=== PATIENT | male | born 1940 | race Caucasian/White ===

== ENCOUNTER 2016-11-14 22:14 | Inpatient (IN) | payer MEDICARE, OTHER ==
[2016-11-15] MEDS: SODIUM CHLORIDE 0.9% 1,000 ML IV SCH ×2 (01:00→22:12)
[2016-11-15 01:53] LABS: Glucose,Whole Blood 199 mg/dL (75-99)
[2016-11-15] MEDS ORDERED: ALPRAZolam 0.25 MG TAB PO PRN (02:54)
[2016-11-15] MEDS ORDERED: ONDANSETRON 4 MG/2 ML VIAL IVP PRN (02:54)
[2016-11-15] MEDS ORDERED: IPRATROPIUM-ALBUTEROL 3 ML NEB INHALATION PRN ×2 (02:55→12:06)
[2016-11-15 06:14] LABS: Glucose,Whole Blood 176 mg/dL (75-99)
[2016-11-15 06:25] LABS: Anisocytosis Slight; Basophils % (A) 0 %; CH 27.9; CHCM 30.5; Eosinophils # (A) 0.1 k/uL (0-0.7); Eosinophils % (A) 1 %; HCT 24.1 % (39.0-53.0); HDW 2.93; HGB 7.5 gm/dL (13.0-17.5); Hypochromasia Moderate; Luc # (Auto) 0.18; Luc % (Auto) 1; Lymphocytes # (A) 0.6 k/uL (1.0-4.8); Lymphocytes % (A) 4 %; MCH 28.4 pg (25.0-35.0); MCHC 30.9 g/dL (31.0-37.0); MCV 91.9 fL (80.0-100.0); Mean Platelet Volume 8.6; Monocytes # (A) 0.5 k/uL (0-1.0); Monocytes % (A) 3 %; Neutrophils # (A) 15.8 k/uL (1.3-7.7); Neutrophils % (A) 91 %; RBC 2.62 m/uL (4.30-5.90); RDW 16.7 % (11.5-15.5); WBC 17.3 k/uL (3.8-10.6); WBC (Perox) 18.43
[2016-11-15 06:46] LABS: Anion Gap 9 mmol/L; Blood Urea Nitrogen 26 mg/dL (9-20); Carbon Dioxide 25 mmol/L (22-30); Chloride 109 mmol/L (98-107); Glucose 164 mg/dL (74-99); Non-African American GFR(MDRD) >60 (>60 ml/min/1.73 sqM); Potassium 4.5 mmol/L (3.5-5.1); Sodium 143 mmol/L (137-145)
[2016-11-15] MEDS: INSULIN LISPRO (humaLOG) 300 UNIT/3 ML VIAL SQ SCH ×4 (08:18→21:07)
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
[2016-11-15] MEDS: PIPERACILLIN-TAZOBACTAM 3.375 GM in DEXTROSE/WATER 1 50ML.BAG IVPB SCH ×2 (11:45→18:56)
[2016-11-15 11:51] LABS: Glucose,Whole Blood 201 mg/dL (75-99)
--- NOTE | 2016-11-15 11:58 | XR ---
EXAMINATION TYPE: XR chest 1V portable DATE OF EXAM ORDERED: 11/15/2016 11:52 AM HISTORY: Cough and fever. COMPARISON: Previous study dated 07/05/2015. FINDINGS: The heart is enlarged. There is atelectatic change at the right lung base. There is chroni c nodularity at the left lung base. There is vascular congestion. I cannot exclude some mild edema. T here is a right-sided pleural effusion. IMPRESSION: 1. CARDIOMEGALY. 2. CHRONIC NODULARITY, LEFT LUNG BASE. 3. CHANGES CONSISTENT WITH MILD HEART FAILURE. 4. RIGHT BASILAR ATELECTASIS. 5. RIGHT-SIDED EFFUSION.
[2016-11-15 12:26] LABS: Hemoglobin A1C 6.8 % (4.2-6.1)
[2016-11-15] MEDS: IPRATROPIUM-ALBUTEROL 3 ML NEB INHALATION SCH ×3 (13:36→20:52)
[2016-11-15] MEDS ORDERED: BISACODYL 10 MG SUPP RECTAL PRN (16:36)
[2016-11-15] MEDS ORDERED: MAGNESIUM HYDROXIDE 2,400 MG/10 ML CUP PEG/G-TUBE PRN (16:36)
[2016-11-15 17:01] LABS: Glucose,Whole Blood 152 mg/dL (75-99)
[2016-11-15] MEDS: POTASSIUM CHLORIDE ORAL LIQUID 40 MEQ/30 ML CUP PEG/G-TUBE SCH ×2 (17:19→22:12)
[2016-11-15] MEDS: metFORMIN 500 MG TAB PEG/G-TUBE SCH (17:19)
[2016-11-15] MEDS ORDERED: ACETAMINOPHEN IV (For NPO) 1,000 MG in EMPTY BAG 1 BAG IVPB ONE (17:43)
--- NOTE | 2016-11-15 18:15 | XR ---
EXAMINATION TYPE: XR chest 1V DATE OF EXAM: 11/15/2016 5:54 PM COMPARISON today HISTORY: Short of breath TECHNIQUE: Single frontal view of the chest is obtained. FINDINGS: There is only vascular congestion. Heart is probably enlarged. There is some consolidation at the right cardiac border and also in the right lower lobe. Thoracic aorta is atheromatous. IMPRESSION: There is mild congestive heart failure. There is increasing pneumonic consolidation in t he right lower lobe compared to the exam at 11:30 AM. Heart failure is unchanged. Mild right pleural effusion is unchanged.
[2016-11-15 18:43] LABS: Anisocytosis Slight; Basophils % (A) 0 %; CH 27.8; CHCM 30.6; Eosinophils # (A) 0.1 k/uL (0-0.7); Eosinophils % (A) 1 %; HCT 27.5 % (39.0-53.0); HGB 8.9 gm/dL (13.0-17.5); Hypochromasia Moderate; Luc # (Auto) 0.16; Luc % (Auto) 1; Lymphocytes # (A) 0.3 k/uL (1.0-4.8); Lymphocytes % (A) 2 %; MCH 29.4 pg (25.0-35.0); MCHC 32.3 g/dL (31.0-37.0); MCV 91.1 fL (80.0-100.0); Mean Platelet Volume 7.7; Monocytes # (A) 0.5 k/uL (0-1.0); Monocytes % (A) 3 %; Neutrophils # (A) 17.3 k/uL (1.3-7.7); Neutrophils % (A) 94 %; RBC 3.02 m/uL (4.30-5.90); RDW 19.6 % (11.5-15.5); WBC 18.3 k/uL (3.8-10.6); WBC (Perox) 19.05
[2016-11-15 18:52] LABS: Anion Gap 13 mmol/L; Blood Urea Nitrogen 25 mg/dL (9-20); Calcium 8.9 mg/dL (8.4-10.2); Carbon Dioxide 20 mmol/L (22-30); Chloride 108 mmol/L (98-107); Glucose 201 mg/dL (74-99); Non-African American GFR(MDRD) >60 (>60 ml/min/1.73 sqM); Sodium 141 mmol/L (137-145); Total Bilirubin 0.9 mg/dL (0.2-1.3)
[2016-11-15 18:53] LABS: Potassium 4.6 mmol/L (3.5-5.1)
[2016-11-15 20:43] LABS: Glucose,Whole Blood 246 mg/dL (75-99)
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
[2016-11-15] MEDS ORDERED: IV VANCOMYCIN PER PHARMACY 1 EACH MISC MISCELLANE PRN (21:09)
[2016-11-15] MEDS: TAMSULOSIN 0.4 MG CAP.ER.24H PO SCH (21:29)
[2016-11-15] MEDS: OLANZapine 5 MG TAB PEG/G-TUBE SCH (22:12)
[2016-11-15] MEDS: VANCOMYCIN 1,250 MG in SODIUM CHLORIDE 0.9% 250 ML IVPB SCH (23:12)
[2016-11-16] MEDS: PIPERACILLIN-TAZOBACTAM 3.375 GM in DEXTROSE/WATER 1 50ML.BAG IVPB SCH ×4 (00:45→23:32)
[2016-11-16] MEDS: CLOPIDOGREL 75 MG TAB PEG/G-TUBE SCH (04:40)
[2016-11-16] MEDS: DOXAZOSIN 1 MG TAB PO SCH (04:40)
[2016-11-16] MEDS: ATORVASTATIN 40 MG TAB PEG/G-TUBE SCH (04:40)
[2016-11-16] MEDS: ESCITALOPRAM 10 MG TAB PEG/G-TUBE SCH (04:40)
[2016-11-16] MEDS: FERROUS SULFATE 325 MG TAB PO SCH (04:41)
[2016-11-16] MEDS: FOLIC ACID 1 MG TAB PEG/G-TUBE SCH (04:41)
[2016-11-16] MEDS: OXYBUTYNIN XL 5 MG TAB.ER.24 PO SCH (04:42)
[2016-11-16] MEDS: LEVOTHYROXINE 100 MCG TAB PEG/G-TUBE SCH (04:42)
[2016-11-16 07:24] LABS: Glucose,Whole Blood 198 mg/dL (75-99)
[2016-11-16] MEDS: IPRATROPIUM-ALBUTEROL 3 ML NEB INHALATION SCH ×4 (07:46→20:28)
--- NOTE | 2016-11-16 07:53 | XR ---
EXAMINATION TYPE: XR chest 1V portable DATE OF EXAM: 11/16/2016 7:14 AM HISTORY: RLL infiltrate. REFERENCE: Previous study dated 11/15/2016. FINDINGS: The heart is enlarged. There is worsening right basilar airspace disease. There is scarring or atelectasis at the left lung base. There is vascular congestion without laura edema. IMPRESSION: 1. CARDIOMEGALY. 2. WORSENING RIGHT BASILAR AIRSPACE DISEASE. 3. SCARRING VERSUS ATELECTASIS, LEFT LUNG BASE.
[2016-11-16] MEDS: INSULIN LISPRO (humaLOG) 300 UNIT/3 ML VIAL SQ SCH ×3 (08:47→18:38)
[2016-11-16] MEDS: POTASSIUM CHLORIDE ORAL LIQUID 40 MEQ/30 ML CUP PEG/G-TUBE SCH ×4 (08:48→22:36)
[2016-11-16] MEDS: metFORMIN 500 MG TAB PEG/G-TUBE SCH ×2 (08:49→18:38)
[2016-11-16] MEDS: VANCOMYCIN 1,250 MG in SODIUM CHLORIDE 0.9% 250 ML IVPB SCH ×2 (08:53→21:06)
--- NOTE | 2016-11-16 10:20 | CONS ---
DATE OF CONSULTATION: 11/15/2016 REASON FOR CONSULTATION: Pneumonia. HISTORY OF PRESENT ILLNESS: The patient is a 76-year-old male who is currently a resident of [facility]. The patient was sent in to the [facility] with a fever 104 degrees Fahrenheit where the patient was found to have an elevated white count. The patient was tachycardic and had elevated lactic acid, diagnosed with sepsis secondary to the possible right lower lobe aspiration pneumonia. The patient did receive Zosyn, and Clindamycin at their facility. Subsequently has been transferred to the [facility] for further work-up of the same. I was asked to see the patient for further recommendation regarding his antibiotic therapy. At the time of my evaluation, the patient overall feels better and has improved. The patient remains to be nonverbal and hence could not provide any history. Most of the history has been obtained from chart review and talking to the nursing staff. The patient did have PEG tube feeding. No problem with the same. No nausea or vomiting has been noticed by the nursing staff or any diarrhea. REVIEW OF SYSTEMS: Could not be reliably obtained. Past medical history significant for hypertension, hyperlipidemia, diabetes mellitus, or pneumonia, CVA, TIA, COPD, seizure disorder, hypothyroidism, pulmonary sarcoidosis and skin cancer. Previous history of MRSA PEG tube site infection. PAST SURGICAL HISTORY: Significant for appendectomy, cholecystectomy, tonsillectomy. Adenoidectomy, craniotomy with brain tumor removal and biopsy and PEG tube placement. SOCIAL HISTORY: The patient is currently a prison resident. Did have history of smoking while he was in high school. No drinking or drug use. FAMILY HISTORY: Mother with history of colon cancer. ALLERGIES CIPROFLOXACIN AND SULFAMETHOXAZOLE. Medications currently include the patient is on: 1. Tylenol. 2. DuoNeb. 3. Xanax. 4. Lipitor. 5. Dulcolax. 6. Plavix. 7. Cardura. 8. Lexapro. 9. Iron sulfate. 10. Folic acid. 11. Humalog. 12. Synthroid. 13. Glucophage. 14. Zyprexa. 15. Zofran. 16. Piptazobactam. 17. Flomax. On examination: Blood pressure is 152/63 with a pulse of 119, temperature 10.4, he is 98% on 4 liters nasal cannula. General description is an elderly male, lying in bed in no distress. No tachypnea or accessory muscle of respiration use. HEENT examination shows pallor. There is no scleral icterus. Oral mucous membrane is dry. NECK: Trachea central. There is no thyromegaly. LUNGS: Unlabored breathing. Some coarse breath sounds at the bases bilaterally. HEART: S1, S2 regular rate and rhythm. ABDOMEN: Soft. No tenderness. EXTREMITIES: No edema of feet. SKIN EXAMINATION: No rash or mass palpable. NEUROLOGICAL: The patient is awake, orientation cannot be determined because he is nonverbal. LABS: Hemoglobin 8.9, white count of 18.3 with a BUN of 25, creatinine 0.73. Sputum culture ordered, not collected. DIAGNOSTIC IMPRESSION AND PLAN: Patient with sepsis in a patient who did have fever of 104 degrees Fahrenheit. patient did have elevated white count, tachycardia and elevated lactic acid meeting criteria for severe sepsis source more likely right lower lobe pneumonia in a patient who is a prison resident, we will need to cover for the resistant Gram-positive as well as gram-negative pathogen especially with previous history of Methicillin-resistant Staph aureus infection. PLAN: 1. Blood cultures x2 to obtain stat. 2. Will obtain Influenza A and B PCR. 3. Will add vancomycin, pharmacy to dose with a target trough of 15, because of fever and despite being on Zosyn. 4. Will try to obtain sputum with gram stain culture and sensitivity. 5. Will follow up on the clinical condition and cultures to further adjust the medication if needed. Thank you for this consultation. We will follow this patient along with you. LUTHER
[2016-11-16 12:21] LABS: Glucose,Whole Blood 179 mg/dL (75-99)
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
[2016-11-16 17:19] LABS: Glucose,Whole Blood 192 mg/dL (75-99)
[2016-11-16] MEDS: NYSTATIN 100,000 UNIT/ML SUSP 500,000 UNIT/5 ML CUP PO SCH ×2 (18:38→22:36)
[2016-11-16] MEDS: SODIUM CHLORIDE 0.9% 1,000 ML IV SCH (20:31)
[2016-11-16] MEDS: TAMSULOSIN 0.4 MG CAP.ER.24H PO SCH (20:31)
[2016-11-16] MEDS: OLANZapine 5 MG TAB PEG/G-TUBE SCH (22:36)
[2016-11-16] MEDS: ACETAMINOPHEN TAB 325 MG TAB PO PRN (22:46)
[2016-11-16 23:50] LABS: Anion Gap 10 mmol/L; Blood Urea Nitrogen 27 mg/dL (9-20); Calcium 9.3 mg/dL (8.4-10.2); Carbon Dioxide 20 mmol/L (22-30); Chloride 117 mmol/L (98-107); Glucose 181 mg/dL (74-99); Non-African American GFR(MDRD) >60 (>60 ml/min/1.73 sqM); Potassium 5.6 mmol/L (3.5-5.1); Sodium 147 mmol/L (137-145)
[2016-11-17 00:30] LABS: Glucose,Whole Blood 169 mg/dL (75-99)
[2016-11-17] MEDS ORDERED: ACETAMINOPHEN IV (For NPO) 1,000 MG in EMPTY BAG 1 BAG IVPB PRN (01:07)
[2016-11-17] MEDS ORDERED: SODIUM CHLORIDE 0.9% 500 ML IV ONE (01:15)
[2016-11-17] MEDS: INSULIN LISPRO (humaLOG) 300 UNIT/3 ML VIAL SQ SCH ×4 (01:42→16:59)
[2016-11-17] MEDS: ATORVASTATIN 40 MG TAB PEG/G-TUBE SCH (04:31)
[2016-11-17] MEDS: ESCITALOPRAM 10 MG TAB PEG/G-TUBE SCH (04:31)
[2016-11-17] MEDS: FERROUS SULFATE 325 MG TAB PO SCH (04:31)
[2016-11-17] MEDS: CLOPIDOGREL 75 MG TAB PEG/G-TUBE SCH (04:31)
[2016-11-17] MEDS: DOXAZOSIN 1 MG TAB PO SCH (04:32)
[2016-11-17] MEDS: LEVOTHYROXINE 100 MCG TAB PEG/G-TUBE SCH (04:32)
[2016-11-17] MEDS: FOLIC ACID 1 MG TAB PEG/G-TUBE SCH (04:32)
[2016-11-17] MEDS: OXYBUTYNIN XL 5 MG TAB.ER.24 PO SCH (04:32)
[2016-11-17 06:13] LABS: Glucose,Whole Blood 215 mg/dL (75-99)
[2016-11-17] MEDS: VANCOMYCIN 1,250 MG in SODIUM CHLORIDE 0.9% 250 ML IVPB SCH ×2 (07:49→21:03)
[2016-11-17] MEDS: IPRATROPIUM-ALBUTEROL 3 ML NEB INHALATION SCH ×4 (07:54→19:56)
[2016-11-17] MEDS ORDERED: VANCOMYCIN TROUGH DUE 1 EACH MISC MISCELLANE ONE (08:00)
--- NOTE | 2016-11-17 08:22 | XR ---
EXAMINATION TYPE: XR chest 2V DATE OF EXAM: 11/17/2016 7:38 AM COMPARISON: 11/16/2016 HISTORY: Pneumonia TECHNIQUE: Frontal and lateral views of the chest are obtained. FINDINGS: Heart is enlarged. There is blunting of right costophrenic angle and pleural thickening on the right lateral chest wall. There is patchy infiltrate in the right lower lobe. There is pulmonary vascular congestion. IMPRESSION: Mild congestive heart failure that is similar to last exam. There is right pleural effus ion that is probably partly loculated and appears slightly increased since yesterday. Persistent righ t lower lobe pneumonia.
[2016-11-17 08:43] LABS: Anisocytosis Slight; Basophils % (A) 0 %; CH 27.6; CHCM 29.9; Eosinophils # (A) 0.1 k/uL (0-0.7); Eosinophils % (A) 0 %; HCT 23.3 % (39.0-53.0); HDW 3.01; Hypochromasia Marked; Luc # (Auto) 0.18; Luc % (Auto) 1; Lymphocytes # (A) 0.6 k/uL (1.0-4.8); Lymphocytes % (A) 3 %; MCH 29.1 pg (25.0-35.0); MCHC 31.5 g/dL (31.0-37.0); MCV 92.6 fL (80.0-100.0); Mean Platelet Volume 7.2; Monocytes # (A) 0.6 k/uL (0-1.0); Monocytes % (A) 3 %; Neutrophils # (A) 19.4 k/uL (1.3-7.7); Neutrophils % (A) 93 %; RBC 2.51 m/uL (4.30-5.90); RDW 19.7 % (11.5-15.5); WBC 20.8 k/uL (3.8-10.6); WBC (Perox) 21.79
[2016-11-17] MEDS: NYSTATIN 100,000 UNIT/ML SUSP 500,000 UNIT/5 ML CUP PO SCH ×4 (08:48→21:56)
[2016-11-17 08:49] LABS: HGB 7.3 gm/dL (13.0-17.5)
[2016-11-17] MEDS: metFORMIN 500 MG TAB PEG/G-TUBE SCH ×2 (08:49→17:00)
[2016-11-17] MEDS: POTASSIUM CHLORIDE ORAL LIQUID 40 MEQ/30 ML CUP PEG/G-TUBE SCH ×4 (08:49→21:56)
[2016-11-17 09:03] LABS: ALT 31 U/L (21-72); AST 21 U/L (17-59); Alkaline Phosphatase 66 U/L (38-126); Anion Gap 11 mmol/L; Blood Urea Nitrogen 24 mg/dL (9-20); Calcium 8.8 mg/dL (8.4-10.2); Carbon Dioxide 21 mmol/L (22-30); Chloride 113 mmol/L (98-107); Glucose 180 mg/dL (74-99); Non-African American GFR(MDRD) >60 (>60 ml/min/1.73 sqM); Potassium 4.4 mmol/L (3.5-5.1); Sodium 145 mmol/L (137-145); Total Bilirubin 0.3 mg/dL (0.2-1.3)
[2016-11-17] MEDS: PIPERACILLIN-TAZOBACTAM 3.375 GM in DEXTROSE/WATER 1 50ML.BAG IVPB SCH ×2 (10:36→16:59)
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
--- NOTE | 2016-11-17 12:15 | PN ---
DATE OF SERVICE: 11/16/2016 Reason for follow up is fever and pneumonia. INTERVAL HISTORY: The patient did spike a fever last night. The patient is afebrile since then. He did have influenza PCR that was negative. Patient seems to be lying comfortably in bed in no distress. No nausea or vomiting has been noticed or any diarrhea. On examination, blood pressure is 104/64 with a pulse of 78. Temperature is 97.2. She is 98% on room air. General description is an elderly male lying in bed in no distress. RESPIRATORY SYSTEM: Unlabored breathing. Some coarse breath sounds at the base. HEART: S1, S2. Regular rate and rhythm. ABDOMEN: Soft, no tenderness. LABS: No CBC was done today. DIAGNOSTIC IMPRESSION AND PLAN: Patient with fever and likely from pneumonia with a question of possible with Gram-negative resistant or Gram-positive. Patient failed response to vanco as well as zosyn. We will try to obtain a sputum to narrow down his antibiotics. Continue supportive care. LUTHER
[2016-11-17 12:25] LABS: Glucose,Whole Blood 226 mg/dL (75-99)
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
[2016-11-17 16:59] LABS: Glucose,Whole Blood 145 mg/dL (75-99)
[2016-11-17] MEDS: SODIUM CHLORIDE 0.9% 1,000 ML IV SCH (17:00)
[2016-11-17] MEDS: ACETAMINOPHEN TAB 325 MG TAB PO PRN ×2 (17:06→22:22)
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
[2016-11-17] MEDS: TAMSULOSIN 0.4 MG CAP.ER.24H PO SCH (21:56)
[2016-11-18 00:11] LABS: Glucose,Whole Blood 191 mg/dL (75-99)
[2016-11-18] MEDS: OLANZapine 5 MG TAB PEG/G-TUBE SCH ×2 (00:32→23:24)
[2016-11-18] MEDS: INSULIN LISPRO (humaLOG) 300 UNIT/3 ML VIAL SQ SCH ×5 (00:34→23:34)
[2016-11-18] MEDS: PIPERACILLIN-TAZOBACTAM 3.375 GM in DEXTROSE/WATER 1 50ML.BAG IVPB SCH ×3 (03:42→15:55)
[2016-11-18] MEDS: ACETAMINOPHEN TAB 325 MG TAB PO PRN ×3 (04:39→23:24)
[2016-11-18 05:37] LABS: Glucose,Whole Blood 227 mg/dL (75-99)
[2016-11-18] MEDS: ATORVASTATIN 40 MG TAB PEG/G-TUBE SCH (05:53)
[2016-11-18] MEDS: DOXAZOSIN 1 MG TAB PO SCH (05:54)
[2016-11-18] MEDS: FERROUS SULFATE 325 MG TAB PO SCH (05:54)
[2016-11-18] MEDS: LEVOTHYROXINE 100 MCG TAB PEG/G-TUBE SCH (05:54)
[2016-11-18] MEDS: OXYBUTYNIN XL 5 MG TAB.ER.24 PO SCH (05:54)
[2016-11-18] MEDS: CLOPIDOGREL 75 MG TAB PEG/G-TUBE SCH (05:54)
[2016-11-18] MEDS: FOLIC ACID 1 MG TAB PEG/G-TUBE SCH (05:54)
[2016-11-18] MEDS: ESCITALOPRAM 10 MG TAB PEG/G-TUBE SCH (05:54)
[2016-11-18] MEDS: IPRATROPIUM-ALBUTEROL 3 ML NEB INHALATION SCH ×4 (07:43→20:59)
[2016-11-18] MEDS: metFORMIN 500 MG TAB PEG/G-TUBE SCH ×2 (07:54→17:50)
[2016-11-18] MEDS ORDERED: VANCOMYCIN TROUGH DUE 1 EACH MISC MISCELLANE ONE (08:00)
[2016-11-18] MEDS: POTASSIUM CHLORIDE ORAL LIQUID 40 MEQ/30 ML CUP PEG/G-TUBE SCH ×4 (09:10→21:31)
[2016-11-18] MEDS: NYSTATIN 100,000 UNIT/ML SUSP 500,000 UNIT/5 ML CUP PO SCH ×4 (09:11→21:32)
[2016-11-18 09:21] LABS: Anisocytosis Slight; Basophils % (A) 0 %; CH 27.4; Eosinophils # (A) 0.2 k/uL (0-0.7); Eosinophils % (A) 2 %; HCT 26.1 % (39.0-53.0); HDW 3.88; HGB 8.3 gm/dL (13.0-17.5); Hypochromasia Marked; Luc # (Auto) 0.14; Luc % (Auto) 1; Lymphocytes # (A) 0.6 k/uL (1.0-4.8); Lymphocytes % (A) 4 %; MCH 28.2 pg (25.0-35.0); MCHC 31.6 g/dL (31.0-37.0); MCV 89.1 fL (80.0-100.0); Mean Platelet Volume 7.5; Monocytes # (A) 0.4 k/uL (0-1.0); Monocytes % (A) 3 %; Neutrophils # (A) 13.5 k/uL (1.3-7.7); Neutrophils % (A) 90 %; Poikilocytosis Slight; RBC 2.93 m/uL (4.30-5.90); RDW 16.2 % (11.5-15.5); WBC 14.9 k/uL (3.8-10.6)
[2016-11-18] MEDS: VANCOMYCIN 1,250 MG in SODIUM CHLORIDE 0.9% 250 ML IVPB SCH ×2 (09:21→23:23)
[2016-11-18 09:28] LABS: Anion Gap 8 mmol/L; Blood Urea Nitrogen 23 mg/dL (9-20); Calcium 8.9 mg/dL (8.4-10.2); Carbon Dioxide 23 mmol/L (22-30); Chloride 110 mmol/L (98-107); Glucose 202 mg/dL (74-99); Non-African American GFR(MDRD) >60 (>60 ml/min/1.73 sqM); Potassium 4.5 mmol/L (3.5-5.1); Sodium 141 mmol/L (137-145)
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
[2016-11-18] MEDS: SODIUM CHLORIDE 0.9% 1,000 ML IV SCH (11:25)
[2016-11-18 11:57] LABS: Glucose,Whole Blood 249 mg/dL (75-99)
--- NOTE | 2016-11-18 13:00 | ECHOF ---
Referral Reason:chf MEASUREMENTS -------- HEIGHT: 172.7 cm WEIGHT: 70.8 kg BP: 111/56 RVIDd: 2.6 cm (< 3.3) IVSd: 1.1 cm (0.6 - 1.1) LVIDd: 4.9 cm (3.9 - 5.3) LVPWd: 1.1 cm (0.6 - 1.1) IVSs: 1.6 cm LVIDs: 3.0 cm LVPWs: 1.5 cm LA Diam: 3.9 cm (2.7 - 3.8) LAESV Index (A-L): 27.07 ml/m Ao Diam: 3.5 cm (2.0 - 3.7) AV Cusp: 2.2 cm (1.5 - 2.6) MV EXCURSION: 13.189 mm (> 18.000) MV EF SLOPE: 112 mm/s (70 - 150) EPSS: 0.5 cm MV E Valente: 1.12 m/s MV DecT: 231 ms MV A Valente: 1.15 m/s MV E/A Ratio: 0.98 FINDINGS -------- Sinus rhythm. This was a technically good study. The left ventricular size is normal. There is borderline concentric left ventricular hypertrophy. Overall left ventricular systolic function is normal with, an EF between 55 - 60 %. The right ventricle is normal in size and function. Normal LA size by volume 22+/-6 ml/m2. The right atrium is normal in size. There is mild aortic valve sclerosis. There is mild aortic regurgitation. Mild mitral annular calcification present. There is trace to mild mitral regurgitation. The tricuspid valve appears structurally normal. The pulmonic valve was not well visualized. The aortic root size is normal. There is no pericardial effusion. CONCLUSIONS -------- 1. Sinus rhythm. 2. The pulmonic valve was not well visualized. 3. The aortic root size is normal. 4. There is no pericardial effusion. 5. This was a technically good study. 6. There is borderline concentric left ventricular hypertrophy. 7. Overall left ventricular systolic function is normal with, an EF between 55 - 60 %. 8. Normal LA size by volume 22+/-6 ml/m2. 9. There is mild aortic valve sclerosis. 10. There is mild aortic regurgitation. 11. Mild mitral annular calcification present. 12. The tricuspid valve appears structurally normal. FUNERAL LOCATION MANAGER: Bonnie Morin RDCS
[2016-11-18] MEDS ORDERED: FUROSEMIDE 10 MG/ML 2 ML VIAL IV ONE (13:09)
[2016-11-18 13:32] VITALS: BMI 23.8
--- NOTE | 2016-11-18 13:39 | XR ---
EXAMINATION TYPE: XR chest 1V portable DATE OF EXAM: 11/18/2016 1:26 PM COMPARISON: Prior chest x-ray 17 November 2016 HISTORY: Shortness of breath TECHNIQUE: Single frontal view of the chest is obtained. FINDINGS: Findings are similar. There is blunting of the right costophrenic angle. Heart may be bord delisa enlarged. Lung lines are low. Interstitium and central vascularity are prominent. No pneumotho rax. IMPRESSION: Correlate for possible congestive heart failure. Findings are similar to prior exam. Add itional follow-up suggested. Pneumonia not excluded.
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
[2016-11-18] MEDS: NYSTATIN 100,000 UNIT/GM POWD 15 GM TOPICAL SCH ×2 (15:56→21:32)
--- NOTE | 2016-11-18 17:17 | PN ---
DATE OF SERVICE: 11/18/2016 Reason for follow-up: Pneumonia and PEG infection. INTERVAL HISTORY: The patient did have a low-grade fever last night of 100.6. He is afebrile since then. He seems to be more awake, alert. He is breathing comfortably. No nausea, vomiting has been noticed or any diarrhea. On examination, blood pressure 111/56 with a pulse of 77, temperature 98. He is 92% on 2 liters nasal cannula. General description is an elderly male, lying in bed in no distress. RESPIRATORY SYSTEM: Unlabored breathing. Clear to auscultation anteriorly. HEART: S1, S2 regular rate and rhythm. Abdomen soft, no tenderness. peg site with minimal redness. EXTREMITIES: No edema of the feet. LABS: Hemoglobin 8.1, white count 14.9, BUN of 23 with a creatinine 0.71. Vanco trough was elevated though. The abdominal wall culture showing yeast species. DIAGNOSTIC IMPRESSION AND PLAN: 1. Patient admitted to the hospital with pneumonia with a question of possible aspiration gram negative currently covered with Vanco and Zosyn that will be continued. 2. Patient with some drainage from percutaneous endoscopic gastrostomy feeding tube site, we will apply nystatin powder to that area and evaluate the patient tomorrow. Continue supportive care. MTDD
[2016-11-18 18:04] LABS: Glucose,Whole Blood 254 mg/dL (75-99)
[2016-11-18] MEDS: TAMSULOSIN 0.4 MG CAP.ER.24H PO SCH (21:32)
[2016-11-18 23:39] LABS: Glucose,Whole Blood 199 mg/dL (75-99)
[2016-11-19] MEDS: PIPERACILLIN-TAZOBACTAM 3.375 GM in DEXTROSE/WATER 1 50ML.BAG IVPB SCH ×4 (01:40→23:25)
[2016-11-19] MEDS: ATORVASTATIN 40 MG TAB PEG/G-TUBE SCH (05:42)
[2016-11-19] MEDS: LEVOTHYROXINE 100 MCG TAB PEG/G-TUBE SCH (05:42)
[2016-11-19] MEDS: OXYBUTYNIN XL 5 MG TAB.ER.24 PO SCH (05:42)
[2016-11-19] MEDS: FOLIC ACID 1 MG TAB PEG/G-TUBE SCH (05:42)
[2016-11-19] MEDS: DOXAZOSIN 1 MG TAB PO SCH (05:42)
[2016-11-19] MEDS: CLOPIDOGREL 75 MG TAB PEG/G-TUBE SCH (05:42)
[2016-11-19] MEDS: ESCITALOPRAM 10 MG TAB PEG/G-TUBE SCH (05:42)
[2016-11-19] MEDS: FERROUS SULFATE 325 MG TAB PO SCH (05:42)
[2016-11-19] MEDS: INSULIN LISPRO (humaLOG) 300 UNIT/3 ML VIAL SQ SCH ×4 (05:44→23:53)
[2016-11-19 05:45] LABS: Glucose,Whole Blood 161 mg/dL (75-99)
--- NOTE | 2016-11-19 07:30 | PN ---
DATE OF SERVICE: 11/18/2016 This 76-year-old gentleman who was admitted with acute right lower lobe pneumonia with possible aspiration and sepsis is being closely monitored at this time. The patient still has elevated lactic acid. Seen and evaluated the patient along with the nurse practitioner. Please refer to the nurse practitioner notes and impression documented for further information. Patient closely followed by Pulmonary as well as Infectious Disease. Further recommendations to follow.
[2016-11-19] MEDS: IPRATROPIUM-ALBUTEROL 3 ML NEB INHALATION SCH ×4 (08:07→20:27)
[2016-11-19] MEDS: metFORMIN 500 MG TAB PEG/G-TUBE SCH ×2 (09:12→17:35)
[2016-11-19] MEDS: ACETAMINOPHEN TAB 325 MG TAB PO PRN (09:12)
[2016-11-19] MEDS: POTASSIUM CHLORIDE ORAL LIQUID 40 MEQ/30 ML CUP PEG/G-TUBE SCH ×4 (09:12→22:04)
[2016-11-19] MEDS: NYSTATIN 100,000 UNIT/ML SUSP 500,000 UNIT/5 ML CUP PO SCH ×4 (09:13→22:04)
[2016-11-19] MEDS: SODIUM CHLORIDE 0.9% 1,000 ML IV SCH (09:13)
[2016-11-19] MEDS: NYSTATIN 100,000 UNIT/GM POWD 15 GM TOPICAL SCH ×3 (09:14→22:04)
[2016-11-19 09:45] LABS: Anisocytosis Moderate; Basophils % (A) 0 %; CH 28.7; CHCM 31.5; Eosinophils # (A) 0.3 k/uL (0-0.7); Eosinophils % (A) 2 %; HCT 27.1 % (39.0-53.0); HDW 3.76; HGB 8.8 gm/dL (13.0-17.5); Hypochromasia Moderate; Luc # (Auto) 0.19; Luc % (Auto) 2; Lymphocytes # (A) 0.5 k/uL (1.0-4.8); Lymphocytes % (A) 4 %; MCH 29.6 pg (25.0-35.0); MCHC 32.3 g/dL (31.0-37.0); MCV 91.7 fL (80.0-100.0); Mean Platelet Volume 8.2; Monocytes # (A) 0.4 k/uL (0-1.0); Monocytes % (A) 3 %; Neutrophils # (A) 11.4 k/uL (1.3-7.7); Neutrophils % (A) 89 %; Poikilocytosis Slight; RBC 2.95 m/uL (4.30-5.90); RDW 20.6 % (11.5-15.5); WBC 12.9 k/uL (3.8-10.6); WBC (Perox) 12.61
[2016-11-19 10:19] LABS: Anion Gap 9 mmol/L; Blood Urea Nitrogen 21 mg/dL (9-20); Calcium 9.1 mg/dL (8.4-10.2); Carbon Dioxide 25 mmol/L (22-30); Chloride 105 mmol/L (98-107); Glucose 168 mg/dL (74-99); Non-African American GFR(MDRD) >60 (>60 ml/min/1.73 sqM); Potassium 4.6 mmol/L (3.5-5.1); Sodium 139 mmol/L (137-145)
--- NOTE | 2016-11-19 10:41 | P.PN ---
Subjective Progress note dated 11/18/2016 76-year-old gentleman who was transferred from the extended care facility and [facility]. Has history of diabetes chronic renal failure CVA traumatic brain injury and also has a history of hypothyroidism hyperlipidemia as well as aspiration pneumonia and reactive are quiet sarcoidosis. The patient was admitted with a diagnosis of shortness of breath and probable pneumonia involving the right lower lobe. The patient continues to improve. Prognosis is not very good. The patient apparently awake and alert. I'm not sure that he can protect his airway particularly well. Progress note dated 11/19/2016 76-year-old male who was transferred from an extended care facility. He has a history of diabetes chronic renal failure CVA traumatic brain injury hypothyroidism hyperlipidemia aspiration pneumonia and quiesced and sarcoidosis. He was admitted with a diagnosis of possible pneumonia. He stable. On 2 L. Not particularly verbal. No distress. No coughing. Does not appear to be have any difficulty breathing. No audible wheezing. Is not practically dyspneic or tachypneic at this time. Getting tube feeds. Objective - Vital Signs Vital signs: Vital Signs Temp 98.3 F 11/19/16 07:00 Pulse 68 11/19/16 08:22 Resp 22 11/19/16 07:00 BP 140/71 11/19/16 07:00 Pulse Ox 96 11/19/16 08:08 Intake & Output 11/18/16 11/19/16 11/19/16 18:59 06:59 18:59 Intake Total 0 Output Total 200 Balance -200 0 Weight 71 kg 67 kg Intake: Oral 0 Output: Urine 200 Other: Voiding Method Diaper Diaper Incontinent Incontinent # Voids 1 2 # Bowel Movements 1 2 - Exam No acute distress, not particularly oriented. Sitting in bed. HEENT examination is grossly unremarkable. Mucous membranes are moist. He is drooling a bit. Neck supple. Full range of motion. No adenopathy or thyromegaly. Neck veins are flat. Cardiovascular examination reveals distant heart sounds. S1 and S2 normal. No S3-S4 or murmur. Lungs reveal few scattered rhonchi. No wheezes or crackles. Breath sounds are diminished. Does not really take deep breath.. Difficult to auscultate his lungs. Abdominal examinations unremarkable. Extremities reveal mild edema. - Labs CBC & Chem 7: 11/19/16 08:33 11/19/16 08:33 Labs: Abnormal Lab Results - Last 24 Hours (Table) 11/18/16 11/18/16 11/18/16 Range/Units 11:54 18:01 23:23 WBC (3.8-10.6) k/uL RBC (4.30-5.90) m/uL Hgb (13.0-17.5) gm/dL Hct (39.0-53.0) % RDW (11.5-15.5) % Neutrophils # (1.3-7.7) k/uL Lymphocytes # (1.0-4.8) k/uL BUN (9-20) mg/dL Creatinine (0.66-1.25) mg/dL Glucose (74-99) mg/dL POC Glucose (mg/dL) 249 H 254 H 199 H (75-99) mg/dL 11/19/16 11/19/16 11/19/16 Range/Units 05:43 08:33 08:33 WBC 12.9 H (3.8-10.6) k/uL RBC 2.95 L (4.30-5.90) m/uL Hgb 8.8 L (13.0-17.5) gm/dL Hct 27.1 L (39.0-53.0) % RDW 20.6 H (11.5-15.5) % Neutrophils # 11.4 H (1.3-7.7) k/uL Lymphocytes # 0.5 L (1.0-4.8) k/uL BUN 21 H (9-20) mg/dL Creatinine 0.63 L (0.66-1.25) mg/dL Glucose 168 H (74-99) mg/dL POC Glucose (mg/dL) 161 H (75-99) mg/dL Microbiology - Last 24 Hours (Table) 11/15/16 18:32 Blood Culture - Preliminary Blood No Growth after 72 hours 11/15/16 21:21 Blood Culture - Preliminary Blood No Growth after 72 hours 11/17/16 03:00 Gram Stain - Preliminary Abdomen Wound Culture - Preliminary Yeast species Assessment and Plan (1) Aspiration pneumonia Status: Acute (2) Anemia Status: Acute (3) COPD (chronic obstructive pulmonary disease) Status: Acute (4) Diabetes Status: Acute (5) Fever Status: Acute (6) Parkinsonism Status: Acute (7) Sarcoidosis Status: Acute (8) Weakness Status: Acute Plan: Plan dated 11/18/2016 The patient continues to be treated for right lower lobe pneumonia and fever. He has a history of underlying sarcoidosis chronic aspiration pneumonia traumatic brain injury CVA dysphagia with recent PEG placement anemia of chronic disease chronic renal insufficiency hypothyroidism hyperlipidemia. The patient probably has healthcare acquired pneumonia. We'll check his labs x- rays and medications. Additional recommendations suggestions are forthcoming. Prognosis is poor he is at high risk for aspiration. Plan dated 11/19/2016 The patient continues to improve. No additional recommendations are made. We' ll continue to follow. On the 2 L O2. He seems very stable. Not having any respiratory difficulty. Cough is mostly dry. I'm not sure if he is producing her not producing any phlegm. Additional recommendations suggestions are forthcoming. Chest x-rays labs and medications are all reviewed. Time with Patient: Less than 30
[2016-11-19 12:01] LABS: Glucose,Whole Blood 204 mg/dL (75-99)
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
[2016-11-19 17:29] LABS: Glucose,Whole Blood 169 mg/dL (75-99)
[2016-11-19] MEDS: VANCOMYCIN 1,250 MG in SODIUM CHLORIDE 0.9% 250 ML IVPB SCH (17:35)
[2016-11-19] MEDS: FLUCONAZOLE ORAL SUSP 1,400 MG/35 ML BOTTLE PEG/G-TUBE SCH (17:38)
[2016-11-19] MEDS: TAMSULOSIN 0.4 MG CAP.ER.24H PO SCH (22:03)
--- NOTE | 2016-11-19 22:19 | PN ---
DATE OF SERVICE: 11/19/2016 REASON FOR FOLLOWUP: Aspiration pneumonia and a PEG tube site infection. INTERVAL HISTORY: The patient is afebrile. He seems to be more awake and alert. He is breathing comfortably. No nausea or vomiting has been noticed or any diarrhea. He is unable to provide any reliable history. On examination, blood pressure is 115/55 with a pulse of 64, temperature 97.6. He is 98% on 2L nasal cannula. General description is an elderly male, lying in bed in no distress. RESPIRATORY SYSTEM: Unlabored breathing. Clear to auscultation anteriorly. HEART: S1, S2 regular rate and rhythm. ABDOMEN: Soft, no tenderness. LABS: Hemoglobin 8.8, white count 12.9 with a BUN of 21, creatinine 0.63. Blood culture has been negative. Sputum was not collected. The abdominal cultures showing yeast. DIAGNOSTIC IMPRESSION AND PLAN: 1. Patient admitted to hospital with sepsis which is unlikely pneumonia, aspiration in etiology. The patient seems to have shown overall clinical improvement. Sputum not collected. If no resistant organism is grown, he can hopefully finish therapy with oral Augmentin. 2. Patient's percutaneous endoscopic gastrostomy tube site culture positive for yeast. Continue with the nystatin powder and dress that for about a week.
[2016-11-19] MEDS: OLANZapine 5 MG TAB PEG/G-TUBE SCH (23:20)
[2016-11-19 23:57] LABS: Glucose,Whole Blood 173 mg/dL (75-99)
[2016-11-20] MEDS: SODIUM CHLORIDE 0.9% 1,000 ML IV SCH (05:14)
[2016-11-20 05:53] LABS: Glucose,Whole Blood 171 mg/dL (75-99)
[2016-11-20] MEDS: LEVOTHYROXINE 100 MCG TAB PEG/G-TUBE SCH (06:32)
[2016-11-20] MEDS: FOLIC ACID 1 MG TAB PEG/G-TUBE SCH (06:32)
[2016-11-20] MEDS: FERROUS SULFATE 325 MG TAB PO SCH (06:32)
[2016-11-20] MEDS: ATORVASTATIN 40 MG TAB PEG/G-TUBE SCH (06:32)
[2016-11-20] MEDS: DOXAZOSIN 1 MG TAB PO SCH (06:32)
[2016-11-20] MEDS: ESCITALOPRAM 10 MG TAB PEG/G-TUBE SCH (06:32)
[2016-11-20] MEDS: OXYBUTYNIN XL 5 MG TAB.ER.24 PO SCH (06:33)
[2016-11-20] MEDS: CLOPIDOGREL 75 MG TAB PEG/G-TUBE SCH (06:33)
[2016-11-20] MEDS: INSULIN LISPRO (humaLOG) 300 UNIT/3 ML VIAL SQ SCH (06:33)
[2016-11-20] MEDS: IPRATROPIUM-ALBUTEROL 3 ML NEB INHALATION SCH ×2 (07:09→11:16)
[2016-11-20 08:02] LABS: Basophils % (A) 0 %; CH 27.4; CHCM 30.6; Eosinophils # (A) 0.3 k/uL (0-0.7); Eosinophils % (A) 3 %; HCT 29.6 % (39.0-53.0); HDW 3.39; HGB 9.2 gm/dL (13.0-17.5); Hypochromasia Marked; Luc # (Auto) 0.16; Luc % (Auto) 1; Lymphocytes # (A) 0.8 k/uL (1.0-4.8); Lymphocytes % (A) 7 %; MCV 90.2 fL (80.0-100.0); Mean Platelet Volume 6.8; Monocytes # (A) 0.4 k/uL (0-1.0); Monocytes % (A) 3 %; Neutrophils # (A) 9.8 k/uL (1.3-7.7); Neutrophils % (A) 86 %; RBC 3.29 m/uL (4.30-5.90); RDW 15.7 % (11.5-15.5); WBC 11.5 k/uL (3.8-10.6); WBC (Perox) 11.41
[2016-11-20 08:09] VITALS: BP 133/54; RESP 16; TEMP 98.1
[2016-11-20 08:32] LABS: Anion Gap 7 mmol/L; Blood Urea Nitrogen 20 mg/dL (9-20); Calcium 9.2 mg/dL (8.4-10.2); Carbon Dioxide 28 mmol/L (22-30); Chloride 103 mmol/L (98-107); Glucose 153 mg/dL (74-99); Non-African American GFR(MDRD) >60 (>60 ml/min/1.73 sqM); Potassium 4.7 mmol/L (3.5-5.1); Sodium 138 mmol/L (137-145)
[2016-11-20] MEDS: PIPERACILLIN-TAZOBACTAM 3.375 GM in DEXTROSE/WATER 1 50ML.BAG IVPB SCH (09:43)
[2016-11-20] MEDS: VANCOMYCIN 1,250 MG in SODIUM CHLORIDE 0.9% 250 ML IVPB SCH (09:43)
[2016-11-20] MEDS: NYSTATIN 100,000 UNIT/GM POWD 15 GM TOPICAL SCH (09:44)
[2016-11-20] MEDS: POTASSIUM CHLORIDE ORAL LIQUID 40 MEQ/30 ML CUP PEG/G-TUBE SCH (09:44)
[2016-11-20] MEDS: NYSTATIN 100,000 UNIT/ML SUSP 500,000 UNIT/5 ML CUP PO SCH (09:44)
[2016-11-20] MEDS: FLUCONAZOLE ORAL SUSP 1,400 MG/35 ML BOTTLE PEG/G-TUBE SCH (09:44)
[2016-11-20] MEDS: metFORMIN 500 MG TAB PEG/G-TUBE SCH (09:44)
[2016-11-20 11:34] VITALS: PULSE 72
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
[2016-11-20 11:59] LABS: Glucose,Whole Blood 193 mg/dL (75-99)
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
--- NOTE | 2016-11-20 20:08 | PN ---
DATE OF SERVICE: 11/20/2016 REASON FOR FOLLOWUP: 1. Aspiration pneumonia. 2. PEG tube site infection. INTERVAL HISTORY: The patient is afebrile. He was seen on rounds early this afternoon. He has been breathing comfortably. No nausea, vomiting or significant diarrhea. On examination, blood pressure is 133/54 with a pulse of 63, temperature 98.1. He is 99% on 2 L nasal cannula. General description is an elderly male lying in bed in no distress. RESPIRATORY SYSTEM: Unlabored breathing. Clear to auscultation anteriorly. HEART: S1, S2. Regular rate and rhythm. ABDOMEN: Soft. No tenderness. LABS: Hemoglobin 9.2, white count 11.5 with a BUN of 20, creatinine 0.66. DIAGNOSTIC IMPRESSION AND PLAN: 1. Patient admitted to hospital with sepsis. Source is likely pneumonia in a patient who has shown overall clinical improvement. Plan at this time is to finish therapy with Avelox for another 10 days. 2. PEG tube site positive culture. Recommend nystatin powder. Plan of care discussed with the nurse practitioner for the primary team. LUTHER
== END 2016-11-20 14:25 | DRG 871 ==
LOC: 6SEL 11-15 00:38 → 4MS4W 11-15 14:14
PROVIDERS: ADMIT Internal Medicine; ATTEND Internal Medicine
DX: A41.9 Sepsis, unspecified organism (principal); G93.41 Metabolic encephalopathy; J69.0 Pneumonitis due to inhalation of food and vomit; E87.2 Acidosis; E11.22 Type 2 diabetes mellitus with diabetic chronic kidney disease; K94.22 Gastrostomy infection; B37.0 Candidal stomatitis; R13.10 Dysphagia, unspecified; D64.9 Anemia, unspecified; D86.9 Sarcoidosis, unspecified; E03.9 Hypothyroidism, unspecified; E78.5 Hyperlipidemia, unspecified; E86.0 Dehydration; F32.9 Major depressive disorder, single episode, unspecified; F41.9 Anxiety disorder, unspecified; G20 Parkinson's disease; G40.909 Epilepsy, unspecified, not intractable, without status epilepticus; I12.9 Hypertensive chronic kidney disease with stage 1 through stage 4 chronic kidney disease, or unspecified chronic kidney disease; J44.9 Chronic obstructive pulmonary disease, unspecified; N18.9 Chronic kidney disease, unspecified; Z79.84 Long term (current) use of oral hypoglycemic drugs; Z79.899 Other long term (current) drug therapy; Z86.14 Personal history of Methicillin resistant Staphylococcus aureus infection; Z86.73 Personal history of transient ischemic attack (TIA), and cerebral infarction without residual deficits; Z87.01 Personal history of pneumonia (recurrent); Z87.820 Personal history of traumatic brain injury
CPT/HCPCS: 71010; 71020; 80048; 80053; 80202; 82247; 83036; 83605; 85025; 86850; 86900; 86901; 86920; 87040; 87070; 87075; 87205; 87502; 93306; 94640; 94760

== ENCOUNTER 2017-01-30 14:02 | Observation (INO) | payer OTHER, MEDICARE ==
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
[2017-01-30] MEDS ORDERED: NALOXONE 0.4 MG/ML 1 ML VIAL IV PRN (18:05)
[2017-01-30 21:29] LABS: Glucose,Whole Blood 74 mg/dL (75-99)
[2017-01-30] MEDS ORDERED: HYDROmorphone 1 MG/ML 1 ML SYRINGE IVP PRN (22:12)
[2017-01-30] MEDS ORDERED: LORazepam 2 MG/ML SYRINGE IV PRN (22:12)
[2017-01-30] MEDS: PANTOPRAZOLE 40 MG/10 ML VIAL IVP SCH (22:44)
--- NOTE | 2017-01-30 23:11 | XR ---
EXAM: XR Chest, 1 View CLINICAL HISTORY: Reason: COPD TECHNIQUE: Frontal view of the chest. COMPARISON: 11/18/16. FINDINGS: Low lung volumes. Cardiac and mediastinal accentuated by AP portable technique and low lung volumes. Suspect heart size is upper limits normal allowing for technique. Improved aeration compared to previous. No evidence for edema on current. Suspected atelectasis at lung bases. Questionable small right pleural effusion versus summation. IMPRESSION: Improved aeration. Suspected basilar atelectasis. Summation versus small pleural effusion on the right.
[2017-01-31 07:21] LABS: Anisocytosis Slight; Basophils % (A) 0 %; CHCM 32.7; Eosinophils # (A) 0.1 k/uL (0-0.7); Eosinophils % (A) 2 %; HCT 34.8 % (39.0-53.0); HDW 2.76; HGB 11.4 gm/dL (13.0-17.5); Luc # (Auto) 0.13; Luc % (Auto) 2; Lymphocytes # (A) 0.8 k/uL (1.0-4.8); Lymphocytes % (A) 13 %; MCH 30.3 pg (25.0-35.0); MCHC 32.9 g/dL (31.0-37.0); MCV 92.2 fL (80.0-100.0); Mean Platelet Volume 8.1; Monocytes # (A) 0.4 k/uL (0-1.0); Monocytes % (A) 6 %; Neutrophils # (A) 4.9 k/uL (1.3-7.7); Neutrophils % (A) 77 %; RBC 3.78 m/uL (4.30-5.90); RDW 16.8 % (11.5-15.5); WBC 6.4 k/uL (3.8-10.6); WBC (Perox) 6.27
[2017-01-31 07:34] LABS: ALT 62 U/L (21-72); AST 37 U/L (17-59); Alkaline Phosphatase 126 U/L (38-126); Anion Gap 8 mmol/L; Blood Urea Nitrogen 25 mg/dL (9-20); Calcium 9.4 mg/dL (8.4-10.2); Carbon Dioxide 28 mmol/L (22-30); Chloride 106 mmol/L (98-107); Glucose 67 mg/dL (74-99); Non-African American GFR(MDRD) >60 (>60 ml/min/1.73 sqM); Phosphorous 3.7 mg/dL (2.5-4.5); Potassium 4.5 mmol/L (3.5-5.1); Sodium 142 mmol/L (137-145); Total Bilirubin 0.7 mg/dL (0.2-1.3); Total Protein 6.4 g/dL (6.3-8.2)
[2017-01-31 07:35] LABS: INR 1.1 (<1.1); Prothrombin Time 10.7 sec (9.0-12.0)
[2017-01-31] MEDS: INSULIN LISPRO (humaLOG) 300 UNIT/3 ML VIAL SQ SCH ×3 (08:10→17:57)
[2017-01-31 08:11] LABS: Glucose,Whole Blood 69 mg/dL (75-99)
[2017-01-31] MEDS: PANTOPRAZOLE 40 MG/10 ML VIAL IVP SCH (08:14)
[2017-01-31] MEDS ORDERED: DEXTROSE 5% IN WATER 1,000 ML IV SCH (08:30)
[2017-01-31] MEDS ORDERED: HEPARIN SODIUM,PORCINE 5,000 UNIT/ML 1 ML VIAL SQ SCH (09:00)
[2017-01-31 10:08] LABS: Glucose,Whole Blood 81 mg/dL (75-99)
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
[2017-01-31 10:53] VITALS: BMI 21.2
[2017-01-31 11:36] LABS: Glucose,Whole Blood 82 mg/dL (75-99)
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
[2017-01-31] MEDS ORDERED: ceFAZolin 2 GM in SODIUM CHLORIDE 0.9% 100 ML IVPB ONE (14:00)
[2017-01-31] MEDS ORDERED: PROPOFOL 10 MG/ML 20 ML VIAL IV ONE (16:09)
[2017-01-31] MEDS ORDERED: LACTATED RINGERS 1,000 ML IV ONE (16:14)
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
[2017-01-31 17:16] LABS: Glucose,Whole Blood 72 mg/dL (75-99)
[2017-01-31 17:40] VITALS: BP 128/67; PULSE 59; RESP 16; TEMP 98
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
== END 2017-01-31 19:14 | disposition home or self-care (01) ==
LOC: EC 14:02 → 3SUR 18:05
PROVIDERS: ADMIT Hospitalist; ATTEND Hospitalist
DX: K94.23 Gastrostomy malfunction (principal); Z79.899 Other long term (current) drug therapy; Z79.02 Long term (current) use of antithrombotics/antiplatelets; Z79.4 Long term (current) use of insulin; Z88.2 Allergy status to sulfonamides; Z88.1 Allergy status to other antibiotic agents; Z87.891 Personal history of nicotine dependence; Y83.3 Surgical operation with formation of external stoma as the cause of abnormal reaction of the patient, or of later complication, without mention of misadventure at the time of the procedure; R13.19 Other dysphagia; J44.9 Chronic obstructive pulmonary disease, unspecified; Z87.01 Personal history of pneumonia (recurrent); E11.9 Type 2 diabetes mellitus without complications; E78.5 Hyperlipidemia, unspecified; G40.909 Epilepsy, unspecified, not intractable, without status epilepticus; E03.9 Hypothyroidism, unspecified; D86.0 Sarcoidosis of lung; Z86.14 Personal history of Methicillin resistant Staphylococcus aureus infection; F32.9 Major depressive disorder, single episode, unspecified; F41.9 Anxiety disorder, unspecified; I69.354 Hemiplegia and hemiparesis following cerebral infarction affecting left non-dominant side; I69.328 Other speech and language deficits following cerebral infarction; I10 Essential (primary) hypertension
CPT/HCPCS: 99284 ×2; 96376; 96365; 96372; 96375; 80053; 83735; 84100; 85025; 85610; 71010; 43246; G0378 ×2; J1644; J0690; J2704; C9113 ×2

== ENCOUNTER 2019-07-27 06:45 | Day surgery (SDC) | payer MEDICARE ==
[2019-07-26 10:21] VITALS: BMI 31.9
[~2019-07-27 06:45] MED LIST: LACTATED RINGERS 1,000 ML IV SCH
[2019-07-27] MEDS ORDERED: LIDOCAINE 1% 20 ML VIAL (10MG/ML) FOR IV START INTRADERMA ONE (07:36)
[2019-07-27] MEDS ORDERED: INSULIN ASPART (NovoLOG) 100 UNIT/ML VIAL SQ ONE ×3 (07:37→10:44)
[2019-07-27] MEDS ORDERED: PROPOFOL 10 MG/ML 20 ML VIAL IV ONE (07:43)
[2019-07-27 07:44] LABS: Glucose,Whole Blood 236 mg/dL (75-99)
--- NOTE | 2019-07-27 08:32 | P.PCN ---
Date of Procedure: 07/27/19 Description of Procedure: Brief history: Patient is 79-year-old male presenting for PEG tube replacement. Patient was seen in the office with concerns about leaking around the PEG tube site. PEG tube last replaced in 2017. Procedure performed: EGD with PEG tube replacement Operative diagnosis: PEG tube replacement, oropharyngeal dysphagia IV sedation by anesthesia Estimated blood loss: Minimal. Procedure: After informed consent was obtained with the patient as well as the family the patient was brought into the endoscopy unit. IV conscious sedation was administered by anesthesia under continuous monitoring. The Olympus GF 190 video endoscope was inserted into the mouth and esophagus intubated without any difficulty and was gradually advanced to the stomach and duodenum. The bulb and second part of the duodenum was visualized which appeared normal. The scope at this time was withdrawn to the stomach adequately insufflated with air and the internal balloon bumper from prior PEG tube placement was identified. The balloon appeared to be deflated. At this time an insertion wire was passed through the patient's previously placed PEG tube out and into the stomach. Insertion wire was snared and then the insertion wire, snare and endoscope were withdrawn from the mouth. The insertion wire was then attached to a 20-[employer] PEG tube. The insertion wire was then pulled with the PEG tube through the incision site. PEG tube was pulled until the internal bolster was sitting snugly against the gastric mucosa which was confirmed with repeat EGD. On repeat EGD the esophagus was intubated without any difficulty and was advanced into the stomach. The internal bumper appeared to be in secure position. The visualized portions of the antrum body cardia and fundus of the stomach appeared normal. The esophagus was carefully examined as the scope was gradually being withdrawn which appeared normal. At this time external bumper was placed on the PEG tube closer to the anterior abdominal wall at 3 cm ben. The patient tolerated the procedure well. Impression: Successful 20-[employer] PEG tube replacement as described above. Recommendations: Findings of this examination were discussed with the patient and members from his care facility. The patient is okay to be started on tube feeds as well as meds through his PEG tube starting this evening at 5 PM.
[2019-07-27 08:33] VITALS: TEMP 97.2
[2019-07-27 09:16] LABS: Glucose,Whole Blood 201 mg/dL (75-99)
[2019-07-27 10:05] VITALS: BP 160/75; PULSE 70; RESP 16
[2019-07-27 10:38] LABS: Glucose,Whole Blood 247 mg/dL (75-99)
[2019-07-27 11:49] LABS: Glucose,Whole Blood 229 mg/dL (75-99)
== END 2019-07-27 11:55 ==
LOC: ORWHC2ENDO 06:45
PROVIDERS: ATTEND Internal Medicine
DX: K94.29 Other complications of gastrostomy (principal); R13.12 Dysphagia, oropharyngeal phase; I10 Essential (primary) hypertension; I25.10 Atherosclerotic heart disease of native coronary artery without angina pectoris; E78.5 Hyperlipidemia, unspecified; J44.9 Chronic obstructive pulmonary disease, unspecified; D86.0 Sarcoidosis of lung; E11.9 Type 2 diabetes mellitus without complications; E07.9 Disorder of thyroid, unspecified; I69.154 Hemiplegia and hemiparesis following nontraumatic intracerebral hemorrhage affecting left non-dominant side; I69.128 Other speech and language deficits following nontraumatic intracerebral hemorrhage; I69.191 Dysphagia following nontraumatic intracerebral hemorrhage; R56.9 Unspecified convulsions; F41.9 Anxiety disorder, unspecified; F32.9 Major depressive disorder, single episode, unspecified; I49.1 Atrial premature depolarization; R94.31 Abnormal electrocardiogram [ECG] [EKG]; Z85.841 Personal history of malignant neoplasm of brain; Z88.1 Allergy status to other antibiotic agents; Z88.2 Allergy status to sulfonamides; Z90.89 Acquired absence of other organs; Z90.49 Acquired absence of other specified parts of digestive tract; Z98.890 Other specified postprocedural states; Z79.899 Other long term (current) drug therapy; Z79.02 Long term (current) use of antithrombotics/antiplatelets; Z79.4 Long term (current) use of insulin; Z79.890 Hormone replacement therapy
CPT/HCPCS: 43246; J2704; B4087

== ENCOUNTER 2019-12-14 03:44 | Inpatient (IN) | payer MEDICARE ==
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
[2019-12-14] MEDS ORDERED: PNEUMONIA PROTOCOL UTILIZED 1 EACH MISC PO PRN (03:58)
[2019-12-14] MEDS ORDERED: SODIUM CHLORIDE 0.9% 1,000 ML IV STA (04:00)
[2019-12-14 05:03] LABS: Glucose,Whole Blood 219 mg/dL (75-99)
[2019-12-14 07:04] LABS: Glucose,Whole Blood 211 mg/dL (75-99)
[2019-12-14] MEDS: PIPERACILLIN-TAZOBACTAM 3.375 GM in SODIUM CHLORIDE 0.9% 100 ML IVPB SCH ×3 (08:03→23:33)
[2019-12-14] MEDS: INSULIN ASPART (NovoLOG) 100 UNIT/ML VIAL SQ SCH ×4 (08:04→20:35)
--- NOTE | 2019-12-14 10:46 | XR ---
EXAMINATION TYPE: XR chest 1V portable DATE OF EXAM: 12/14/2019 COMPARISON: 01/30/2017 INDICATION: Pneumonia TECHNIQUE: Single frontal view of the chest is obtained. FINDINGS: The heart size is normal. The pulmonary vasculature is normal. The lungs are clear. Inspiration is somewhat limited IMPRESSION: 1. No acute pulmonary process.
[2019-12-14 11:25] LABS: Glucose,Whole Blood 108 mg/dL (75-99)
[2019-12-14 11:41] LABS: Anisocytosis Slight; Basophils % (A) 0 %; Eosinophils # (A) 0.1 k/uL (0-0.7); Eosinophils % (A) 1 %; HCT 36.2 % (39.0-53.0); HGB 11.1 gm/dL (13.0-17.5); Hypochromasia Slight; Lymphocytes # (A) 0.7 k/uL (1.0-4.8); Lymphocytes % (A) 7 %; MCH 28.1 pg (25.0-35.0); MCHC 30.7 g/dL (31.0-37.0); MCV 91.6 fL (80.0-100.0); Mean Platelet Volume 8.7; Monocytes # (A) 0.6 k/uL (0-1.0); Monocytes % (A) 6 %; Neutrophils % (A) 83 %; Platelet Count 218 k/uL (150-450); RBC 3.95 m/uL (4.30-5.90); RDW 16.1 % (11.5-15.5); WBC 9.6 k/uL (3.8-10.6)
[2019-12-14 11:57] LABS: ALT 19 U/L (4-49); AST 22 U/L (17-59); African American GFR (CKD) >90 (>60 ml/min/1.73 sqM); Albumin 3.6 g/dL (3.5-5.0); Alkaline Phosphatase 102 U/L (38-126); Anion Gap 6 mmol/L; Blood Urea Nitrogen 28 mg/dL (9-20); Calcium 9.3 mg/dL (8.4-10.2); Carbon Dioxide 32 mmol/L (22-30); Chloride 101 mmol/L (98-107); Glucose 106 mg/dL (74-99); Non-African American GFR(CKD) 86 (>60 ml/min/1.73 sqM); Potassium 4.4 mmol/L (3.5-5.1); Sodium 139 mmol/L (137-145); Total Bilirubin 0.5 mg/dL (0.2-1.3); Total Protein 6.4 g/dL (6.3-8.2)
[2019-12-14] MEDS ORDERED: DRY MOUTH SPRAY 44.3 SPRAY/44.3 ML SPRAY MUCOUS MEM PRN (12:32)
[2019-12-14] MEDS ORDERED: BISACODYL 10 MG SUPP RECTAL PRN (12:32)
[2019-12-14] MEDS ORDERED: NA PHOS,M-B/NA PHOS,DI-BA 133 ML ENEMA RECTAL PRN (12:32)
[2019-12-14] MEDS ORDERED: MAGNESIUM HYDROXIDE 2,400 MG/10 ML CUP PO PRN (12:32)
[2019-12-14] MEDS ORDERED: ACETAMINOPHEN ORAL SUSP (PEDS) 3,840 MG/120 ML BOTTLE PEG/G-TUBE PRN (12:32)
[2019-12-14] MEDS ORDERED: ALBUTEROL NEBULIZED 2.5 MG/3 ML INHALATION PRN (12:32)
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
[2019-12-14 13:33] VITALS: BMI 34.7
[2019-12-14 15:20] LABS: Appearance,Urine Clear (Clear); Bilirubin,Urine Negative (Negative); Blood,Urine Small (Negative); Color,Urine Yellow; Glucose,Urine (UA) Negative (Negative); Ketones,Urine Negative (Negative); Leukocyte Esterase,Urine Negative (Negative); Mucus,Urine Rare /hpf; Nitrite,Urine Negative (Negative); PH, Urine 5.5 (5.0-8.0); Protein,Urine Trace (Negative); RBC,Urine 19 /hpf (0-5); Squamous Epithelial Cell,Urine <1 /hpf (0-4); Urobilinogen,Urine <2.0 mg/dL (<2.0); WBC,Urine 3 /hpf (0-5)
[2019-12-14 15:35] LABS: Specific Gravity,Urine >1.050 (1.001-1.035)
[2019-12-14 16:29] LABS: Glucose,Whole Blood 127 mg/dL (75-99)
[2019-12-14] MEDS: HEPARIN SODIUM,PORCINE 5,000 UNIT/ML 1 ML VIAL SQ SCH ×2 (16:33→23:33)
[2019-12-14] MEDS: IPRATROPIUM-ALBUTEROL 3 ML NEB INHALATION PRN (19:47)
[2019-12-14 20:16] LABS: Glucose,Whole Blood 158 mg/dL (75-99)
[2019-12-14] MEDS: LEVOTHYROXINE 100 MCG TAB PEG/G-TUBE SCH (20:35)
[2019-12-14] MEDS: OLANZapine 2.5 MG TAB PEG/G-TUBE SCH (20:35)
[2019-12-14] MEDS: MELATONIN 5 MG TABLET PEG/G-TUBE SCH (20:35)
[2019-12-14] MEDS: LACTOBACILLUS ACIDOPH & BULGAR 1 EACH PACKET PO SCH (20:35)
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
[2019-12-15] MEDS: PANTOPRAZOLE SODIUM 40 MG GRANULE PKT PEG/G-TUBE SCH (03:12)
[2019-12-15] MEDS: INSULIN DETEMIR (LEVEMIR) 100 UNIT/ML SYR SQ SCH (03:12)
[2019-12-15] MEDS: OXYBUTYNIN XL 5 MG TAB.ER.24 PO SCH (03:12)
[2019-12-15] MEDS: DOXAZOSIN 2 MG TAB PEG/G-TUBE SCH (03:12)
[2019-12-15] MEDS: CLOPIDOGREL 75 MG TAB PEG/G-TUBE SCH (03:12)
[2019-12-15] MEDS: ATORVASTATIN 10 MG TAB PEG/G-TUBE SCH (03:12)
[2019-12-15] MEDS: LACTOBACILLUS ACIDOPH & BULGAR 1 EACH PACKET PO SCH ×2 (03:12→20:10)
[2019-12-15] MEDS: ESCITALOPRAM 10 MG TAB PEG/G-TUBE SCH (03:13)
[2019-12-15 06:34] LABS: Basophils % (A) 0 %; Eosinophils # (A) 0.2 k/uL (0-0.7); Eosinophils % (A) 4 %; HCT 34.7 % (39.0-53.0); HGB 10.8 gm/dL (13.0-17.5); Hypochromasia Slight; Lymphocytes # (A) 0.5 k/uL (1.0-4.8); Lymphocytes % (A) 10 %; MCH 28.4 pg (25.0-35.0); MCHC 31.1 g/dL (31.0-37.0); MCV 91.1 fL (80.0-100.0); Mean Platelet Volume 8.4; Monocytes # (A) 0.5 k/uL (0-1.0); Monocytes % (A) 9 %; Neutrophils % (A) 75 %; Platelet Count 235 k/uL (150-450); RBC 3.81 m/uL (4.30-5.90); RDW 15.7 % (11.5-15.5); WBC 5.3 k/uL (3.8-10.6)
[2019-12-15 06:49] LABS: ALT 20 U/L (4-49); AST 24 U/L (17-59); African American GFR (CKD) >90 (>60 ml/min/1.73 sqM); Albumin 3.4 g/dL (3.5-5.0); Alkaline Phosphatase 116 U/L (38-126); Anion Gap 7 mmol/L; Blood Urea Nitrogen 28 mg/dL (9-20); Calcium 9.3 mg/dL (8.4-10.2); Carbon Dioxide 30 mmol/L (22-30); Chloride 102 mmol/L (98-107); Glucose 212 mg/dL (74-99); Non-African American GFR(CKD) 86 (>60 ml/min/1.73 sqM); Potassium 4.3 mmol/L (3.5-5.1); Sodium 139 mmol/L (137-145); Total Bilirubin 0.6 mg/dL (0.2-1.3); Total Protein 6.3 g/dL (6.3-8.2)
[2019-12-15 06:51] LABS: Glucose,Whole Blood 246 mg/dL (75-99)
[2019-12-15] MEDS: PIPERACILLIN-TAZOBACTAM 3.375 GM in SODIUM CHLORIDE 0.9% 100 ML IVPB SCH ×2 (07:28→16:39)
[2019-12-15] MEDS: HEPARIN SODIUM,PORCINE 5,000 UNIT/ML 1 ML VIAL SQ SCH ×2 (07:29→16:39)
[2019-12-15] MEDS: INSULIN ASPART (NovoLOG) 100 UNIT/ML VIAL SQ SCH ×4 (07:30→20:10)
[2019-12-15] MEDS: IPRATROPIUM-ALBUTEROL 3 ML NEB INHALATION PRN ×2 (08:46→11:53)
[2019-12-15 11:50] LABS: Glucose,Whole Blood 179 mg/dL (75-99)
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
[2019-12-15 16:33] LABS: Glucose,Whole Blood 140 mg/dL (75-99)
[2019-12-15] MEDS: LEVOTHYROXINE 100 MCG TAB PEG/G-TUBE SCH (20:10)
[2019-12-15] MEDS: MELATONIN 5 MG TABLET PEG/G-TUBE SCH (20:10)
[2019-12-15] MEDS: OLANZapine 2.5 MG TAB PEG/G-TUBE SCH (20:10)
[2019-12-15 20:11] LABS: Glucose,Whole Blood 137 mg/dL (75-99)
[2019-12-16] MEDS: HEPARIN SODIUM,PORCINE 5,000 UNIT/ML 1 ML VIAL SQ SCH ×2 (00:44→07:36)
[2019-12-16] MEDS: PIPERACILLIN-TAZOBACTAM 3.375 GM in SODIUM CHLORIDE 0.9% 100 ML IVPB SCH ×2 (00:45→07:36)
[2019-12-16 03:55] LABS: Glucose,Whole Blood 194 mg/dL (75-99)
[2019-12-16] MEDS: CLOPIDOGREL 75 MG TAB PEG/G-TUBE SCH (04:04)
[2019-12-16] MEDS: ATORVASTATIN 10 MG TAB PEG/G-TUBE SCH (04:05)
[2019-12-16] MEDS: OXYBUTYNIN XL 5 MG TAB.ER.24 PO SCH (04:05)
[2019-12-16] MEDS: INSULIN DETEMIR (LEVEMIR) 100 UNIT/ML SYR SQ SCH (04:05)
[2019-12-16] MEDS: PANTOPRAZOLE SODIUM 40 MG GRANULE PKT PEG/G-TUBE SCH (04:05)
[2019-12-16] MEDS: DOXAZOSIN 2 MG TAB PEG/G-TUBE SCH (04:05)
[2019-12-16] MEDS: ESCITALOPRAM 10 MG TAB PEG/G-TUBE SCH (04:05)
[2019-12-16] MEDS: LACTOBACILLUS ACIDOPH & BULGAR 1 EACH PACKET PO SCH (04:05)
[2019-12-16 06:44] LABS: Glucose,Whole Blood 226 mg/dL (75-99)
[2019-12-16] MEDS: INSULIN ASPART (NovoLOG) 100 UNIT/ML VIAL SQ SCH ×2 (07:38→13:46)
[2019-12-16 07:48] VITALS: BP 122/68; PULSE 69; RESP 17; TEMP 99.1
[2019-12-16] MEDS: ALBUTEROL HFA INHALER INHALATION PRN ×2 (07:53→11:39)
--- NOTE | 2019-12-16 08:02 | XR ---
EXAMINATION TYPE: XR chest 1V portable DATE OF EXAM: 12/16/2019 CLINICAL HISTORY: Difficulty breathing progress study. TECHNIQUE: Single AP portable upright view of the chest is obtained. COMPARISON: Chest x-ray from [address] 2 days ago. FINDINGS: Background low lung volumes and chronic emphysematous and parenchymal changes without susp icious new Focal airspace opacity, pleural effusion, or pneumothorax seen. Cardiac silhouette size is stable and upper limits of normal with atherosclerotic and ectatic thoracic aorta redemonstrated. Os seous structures remain demineralized. IMPRESSION: Overall stable findings, low lung volumes and chronic changes without new suspicious ac debbie pulmonary process.
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
[2019-12-16 11:59] LABS: Glucose,Whole Blood 162 mg/dL (75-99)
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
== END 2019-12-16 13:15 | DRG 177 ==
LOC: EC 03:44 → 4SSUR 03:58
PROVIDERS: ADMIT Hospitalist; ATTEND Hospitalist
DX: J69.0 Pneumonitis due to inhalation of food and vomit (principal); J96.01 Acute respiratory failure with hypoxia; I69.354 Hemiplegia and hemiparesis following cerebral infarction affecting left non-dominant side; N18.9 Chronic kidney disease, unspecified; J44.9 Chronic obstructive pulmonary disease, unspecified; I25.10 Atherosclerotic heart disease of native coronary artery without angina pectoris; I12.9 Hypertensive chronic kidney disease with stage 1 through stage 4 chronic kidney disease, or unspecified chronic kidney disease; F41.9 Anxiety disorder, unspecified; F32.9 Major depressive disorder, single episode, unspecified; E78.5 Hyperlipidemia, unspecified; G40.909 Epilepsy, unspecified, not intractable, without status epilepticus; E66.9 Obesity, unspecified; E11.22 Type 2 diabetes mellitus with diabetic chronic kidney disease; E03.9 Hypothyroidism, unspecified; D86.9 Sarcoidosis, unspecified; Z20.828 Contact with and (suspected) exposure to other viral communicable diseases; Z68.34 Body mass index [BMI] 34.0-34.9, adult; Z79.02 Long term (current) use of antithrombotics/antiplatelets; Z80.0 Family history of malignant neoplasm of digestive organs; Z79.899 Other long term (current) drug therapy; Z87.01 Personal history of pneumonia (recurrent); Z87.820 Personal history of traumatic brain injury; Z93.1 Gastrostomy status; Z85.841 Personal history of malignant neoplasm of brain; I69.320 Aphasia following cerebral infarction; Z88.1 Allergy status to other antibiotic agents; Z88.2 Allergy status to sulfonamides; Z88.8 Allergy status to other drugs, medicaments and biological substances
CPT/HCPCS: 71045; 80053; 81001; 85025; 87040; 87635; 94640; 94760; 99285

== ENCOUNTER 2020-07-09 07:36 | Inpatient (IN) | payer MEDICARE ==
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
[2020-07-09] MEDS ORDERED: PNEUMONIA PROTOCOL UTILIZED 1 EACH MISC PO PRN (08:29)
[2020-07-09] MEDS ORDERED: AZITHROMYCIN 500 MG in SODIUM CHLORIDE 0.9% 250 ML IVPB STA (08:29)
[2020-07-09] MEDS ORDERED: IPRATROPIUM-ALBUTEROL 3 ML NEB INHALATION PRN ×2 (10:17→18:05)
--- NOTE | 2020-07-09 11:06 | XR ---
EXAMINATION TYPE: XR chest 1V portable DATE OF EXAM: 07/09/2020 HISTORY: Shortness of breath. COMPARISON: 12/16/2019 TECHNIQUE: Single view of the chest is submitted. FINDINGS: Demonstrated are scattered senescent parenchymal change. Right upper lobe and left perihilar infiltrate. Correlate for pneumonia. The heart is stable. Hilar and mediastinal structures are within normal limits. Degenerative changes are seen of the dorsal spine. IMPRESSION: 1. Right upper lobe and left perihilar infiltrate. Correlate for pneumonia.
[2020-07-09] MEDS ORDERED: ALBUTEROL HFA INHALER INHALATION PRN (11:47)
[2020-07-09] MEDS ORDERED: IPRATROPIUM-ALBUTEROL 3 ML NEB INHALATION SCH (12:00)
[2020-07-09] MEDS: TIOTROPIUM 18 MCG/PUFF INHALER INHALATION SCH (12:52)
[2020-07-09] MEDS: ALBUTEROL HFA INHALER INHALATION SCH ×3 (12:52→21:03)
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
[2020-07-09] MEDS ORDERED: ONDANSETRON ODT 4 MG TAB PEG/G-TUBE PRN (18:05)
[2020-07-09] MEDS ORDERED: MAGNESIUM HYDROXIDE 2,400 MG/10 ML CUP PEG/G-TUBE PRN (18:05)
[2020-07-09] MEDS ORDERED: guaiFENesin SYRUP 100MG/5ML 200 MG/10 ML CUP PEG/G-TUBE PRN (18:05)
[2020-07-09] MEDS ORDERED: NITROGLYCERIN SL TABS 0.4 MG TAB SUBLINGUAL PRN (18:05)
[2020-07-09] MEDS ORDERED: NA PHOS,M-B/NA PHOS,DI-BA 133 ML ENEMA RECTAL PRN (18:05)
[2020-07-09] MEDS ORDERED: DRY MOUTH SPRAY 44.3 SPRAY/44.3 ML SPRAY MUCOUS MEM PRN (18:05)
[2020-07-09] MEDS ORDERED: bisacodyL 10 MG SUPP RECTAL PRN (18:05)
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
[2020-07-09 20:25] LABS: Glucose,Whole Blood 324 mg/dL (75-99)
[2020-07-09] MEDS: LORazepam 0.5 MG TAB PEG/G-TUBE SCH (22:22)
[2020-07-09] MEDS: MELATONIN 5 MG TABLET PEG/G-TUBE SCH (22:22)
[2020-07-09] MEDS: LEVOTHYROXINE 100 MCG TAB PEG/G-TUBE SCH (22:22)
[2020-07-09] MEDS: HEPARIN SODIUM,PORCINE 5,000 UNIT/ML 1 ML VIAL SQ SCH (22:22)
[2020-07-09] MEDS: INSULIN ASPART (NovoLOG) 100 UNIT/ML VIAL SQ SCH (22:39)
[2020-07-09] MEDS: SIMETHICONE 40 MG/0.6 ML DROPS 2,000 MG/30 ML BOTTLE PEG/G-TUBE SCH (22:39)
[2020-07-10 02:22] LABS: Glucose,Whole Blood 263 mg/dL (75-99)
[2020-07-10] MEDS: ACETAMINOPHEN TAB 325 MG TAB PEG/G-TUBE PRN (05:02)
[2020-07-10] MEDS: FUROSEMIDE 40 MG TAB PEG/G-TUBE SCH (05:03)
[2020-07-10] MEDS: LORazepam 0.5 MG TAB PEG/G-TUBE SCH ×3 (05:03→21:16)
[2020-07-10] MEDS: CLOPIDOGREL 75 MG TAB PEG/G-TUBE SCH (05:03)
[2020-07-10] MEDS: DOXAZOSIN 2 MG TAB PEG/G-TUBE SCH (05:03)
[2020-07-10] MEDS: ESCITALOPRAM 10 MG TAB PEG/G-TUBE SCH (05:03)
[2020-07-10] MEDS: OXYBUTYNIN XL 5 MG TAB.ER.24 PO SCH (05:03)
[2020-07-10] MEDS: ATORVASTATIN 10 MG TAB PEG/G-TUBE SCH (05:03)
[2020-07-10] MEDS: PANTOPRAZOLE SODIUM 40 MG GRANULE PKT PEG/G-TUBE SCH (05:04)
[2020-07-10 06:31] LABS: Glucose,Whole Blood 286 mg/dL (75-99)
[2020-07-10] MEDS: INSULIN DETEMIR (LEVEMIR) 100 UNIT/ML SYR SQ SCH (07:17)
[2020-07-10] MEDS: INSULIN ASPART (NovoLOG) 100 UNIT/ML VIAL SQ SCH ×4 (07:19→21:16)
[2020-07-10] MEDS ORDERED: INSULIN ASPART (NovoLOG) 100 UNIT/ML VIAL SQ SCH (07:30)
[2020-07-10] MEDS: TIOTROPIUM 18 MCG/PUFF INHALER INHALATION SCH (08:05)
[2020-07-10] MEDS: ALBUTEROL HFA INHALER INHALATION SCH ×4 (08:05→19:34)
--- NOTE | 2020-07-10 08:19 | XR ---
EXAMINATION TYPE: XR chest 1V portable DATE OF EXAM: 07/10/2020 COMPARISON: Prior chest x-ray 07/09/2020 HISTORY: Pneumonia TECHNIQUE: Single frontal view of the chest is obtained. FINDINGS: There is progressed opacification of the right hemithorax, minimal aerated areas remain. V olume loss suspected in the right hemithorax. The aorta is dense. No evident pneumothorax. Heart is o bscured. There is some lucency the right lung base. IMPRESSION: Findings may represent atelectasis, correlate for pneumonia, possible effusion. Follow-u p is recommended. Possible underlying cardiomegaly. Rotated exam, expiratory view.
[2020-07-10 08:37] LABS: Basophils % (A) 0 %; Eosinophils # (A) 0.1 k/uL (0-0.7); Eosinophils % (A) 1 %; HCT 33.3 % (39.0-53.0); HGB 10.5 gm/dL (13.0-17.5); Hypochromasia Slight; Lymphocytes # (A) 0.6 k/uL (1.0-4.8); Lymphocytes % (A) 5 %; MCH 27.3 pg (25.0-35.0); MCHC 31.4 g/dL (31.0-37.0); Mean Platelet Volume 9.2; Monocytes # (A) 0.7 k/uL (0-1.0); Monocytes % (A) 6 %; Neutrophils # (A) 9.6 k/uL (1.3-7.7); Neutrophils % (A) 86 %; Platelet Count 174 k/uL (150-450); RBC 3.83 m/uL (4.30-5.90); RDW 15.9 % (11.5-15.5); WBC 11.2 k/uL (3.8-10.6)
[2020-07-10 08:39] LABS: African American GFR (CKD) >90 (>60 ml/min/1.73 sqM); Anion Gap 6 mmol/L; Blood Urea Nitrogen 26 mg/dL (9-20); Calcium 9.5 mg/dL (8.4-10.2); Carbon Dioxide 31 mmol/L (22-30); Chloride 100 mmol/L (98-107); Glucose 302 mg/dL (74-99); Non-African American GFR(CKD) >90 (>60 ml/min/1.73 sqM); Potassium 4.4 mmol/L (3.5-5.1); Sodium 137 mmol/L (137-145)
[2020-07-10] MEDS: HEPARIN SODIUM,PORCINE 5,000 UNIT/ML 1 ML VIAL SQ SCH ×2 (09:14→21:16)
[2020-07-10] MEDS: PIPERACILLIN-TAZOBACTAM 3.375 GM in SODIUM CHLORIDE 0.9% 100 ML IVPB SCH ×2 (11:57→21:15)
[2020-07-10 12:29] LABS: Glucose,Whole Blood 273 mg/dL (75-99)
[2020-07-10] MEDS: SIMETHICONE 40 MG/0.6 ML DROPS 2,000 MG/30 ML BOTTLE PEG/G-TUBE SCH ×4 (12:50→21:17)
[2020-07-10 17:13] LABS: Glucose,Whole Blood 302 mg/dL (75-99)
[2020-07-10] MEDS: OLANZapine 2.5 MG TAB PEG/G-TUBE SCH (17:15)
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
[2020-07-10 20:22] LABS: Glucose,Whole Blood 290 mg/dL (75-99)
[2020-07-10] MEDS: MELATONIN 5 MG TABLET PEG/G-TUBE SCH (21:16)
[2020-07-10] MEDS: LEVOTHYROXINE 100 MCG TAB PEG/G-TUBE SCH (21:16)
[2020-07-11] MEDS: PIPERACILLIN-TAZOBACTAM 3.375 GM in SODIUM CHLORIDE 0.9% 100 ML IVPB SCH ×2 (05:00→12:00)
[2020-07-11] MEDS: OXYBUTYNIN XL 5 MG TAB.ER.24 PO SCH (05:01)
[2020-07-11] MEDS: PANTOPRAZOLE SODIUM 40 MG GRANULE PKT PEG/G-TUBE SCH (05:01)
[2020-07-11] MEDS: ATORVASTATIN 10 MG TAB PEG/G-TUBE SCH (05:01)
[2020-07-11] MEDS: ESCITALOPRAM 10 MG TAB PEG/G-TUBE SCH (05:01)
[2020-07-11] MEDS: LORazepam 0.5 MG TAB PEG/G-TUBE SCH ×3 (05:01→22:02)
[2020-07-11] MEDS: DOXAZOSIN 2 MG TAB PEG/G-TUBE SCH (05:01)
[2020-07-11] MEDS: CLOPIDOGREL 75 MG TAB PEG/G-TUBE SCH (05:01)
[2020-07-11] MEDS: FUROSEMIDE 40 MG TAB PEG/G-TUBE SCH (05:01)
[2020-07-11] MEDS: ACETAMINOPHEN TAB 325 MG TAB PEG/G-TUBE PRN (05:14)
[2020-07-11 06:22] LABS: Glucose,Whole Blood 445 mg/dL (75-99)
[2020-07-11] MEDS: INSULIN DETEMIR (LEVEMIR) 100 UNIT/ML SYR SQ SCH (06:27)
[2020-07-11] MEDS: INSULIN ASPART (NovoLOG) 100 UNIT/ML VIAL SQ SCH ×4 (06:27→22:02)
[2020-07-11] MEDS: TIOTROPIUM 18 MCG/PUFF INHALER INHALATION SCH (07:31)
[2020-07-11] MEDS: ALBUTEROL HFA INHALER INHALATION SCH ×4 (07:31→22:07)
--- NOTE | 2020-07-11 08:37 | XR ---
EXAMINATION TYPE: XR chest 1V portable DATE OF EXAM: 07/11/2020 COMPARISON: 07/10/2020 HISTORY: Shortness of breath TECHNIQUE: Single frontal view of the chest is obtained. FINDINGS: There is improved aeration involving the right lung with areas of persistent subsegmental consolidation bilaterally. Coarsened interstitium is seen in the heart size stable. Reduced inspirati on. Arthropathy of the shoulders. No pneumothorax. IMPRESSION: 1. Noticeable improvement in aeration involving the right lung with persistent bilateral areas of inf iltrate.
[2020-07-11] MEDS: HEPARIN SODIUM,PORCINE 5,000 UNIT/ML 1 ML VIAL SQ SCH ×2 (08:54→22:01)
[2020-07-11] MEDS: SIMETHICONE 40 MG/0.6 ML DROPS 2,000 MG/30 ML BOTTLE PEG/G-TUBE SCH ×4 (08:54→22:03)
[2020-07-11 09:23] LABS: Anisocytosis Slight; Basophils % (A) 0 %; Eosinophils # (A) 0.1 k/uL (0-0.7); Eosinophils % (A) 1 %; HGB 9.6 gm/dL (13.0-17.5); Hypochromasia Marked; Lymphocytes # (A) 0.5 k/uL (1.0-4.8); Lymphocytes % (A) 4 %; MCH 27.3 pg (25.0-35.0); MCHC 30.2 g/dL (31.0-37.0); MCV 90.4 fL (80.0-100.0); Mean Platelet Volume 8.2; Monocytes # (A) 0.6 k/uL (0-1.0); Monocytes % (A) 5 %; Neutrophils # (A) 8.9 k/uL (1.3-7.7); Neutrophils % (A) 87 %; Platelet Count 191 k/uL (150-450); RBC 3.53 m/uL (4.30-5.90); RDW 16.1 % (11.5-15.5); WBC 10.2 k/uL (3.8-10.6)
[2020-07-11 09:33] LABS: African American GFR (CKD) >90 (>60 ml/min/1.73 sqM); Anion Gap 6 mmol/L; Blood Urea Nitrogen 30 mg/dL (9-20); Carbon Dioxide 34 mmol/L (22-30); Chloride 98 mmol/L (98-107); Glucose 402 mg/dL (74-99); Non-African American GFR(CKD) 87 (>60 ml/min/1.73 sqM); Potassium 4.1 mmol/L (3.5-5.1); Sodium 138 mmol/L (137-145)
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
[2020-07-11 11:46] LABS: Glucose,Whole Blood 413 mg/dL (75-99)
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
[2020-07-11 16:35] LABS: Glucose,Whole Blood 308 mg/dL (75-99)
[2020-07-11] MEDS: OLANZapine 2.5 MG TAB PEG/G-TUBE SCH (16:59)
[2020-07-11 20:23] LABS: Glucose,Whole Blood 342 mg/dL (75-99)
[2020-07-11] MEDS: MELATONIN 5 MG TABLET PEG/G-TUBE SCH (22:02)
[2020-07-11] MEDS: LEVOTHYROXINE 100 MCG TAB PEG/G-TUBE SCH (22:02)
[2020-07-11] MEDS: AMOXIC-POT CLAV 875-125MG 1 EACH TAB PO SCH (22:02)
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
[2020-07-12] MEDS: ACETAMINOPHEN TAB 325 MG TAB PEG/G-TUBE PRN (04:11)
[2020-07-12] MEDS ORDERED: FUROSEMIDE 10 MG/ML 4 ML VIAL IV STA (04:26)
[2020-07-12] MEDS: FUROSEMIDE 40 MG TAB PEG/G-TUBE SCH (04:32)
[2020-07-12 04:50] LABS: HGB 10.1 gm/dL (13.0-17.5); Hypochromasia Marked; MCH 27.2 pg (25.0-35.0); MCHC 30.6 g/dL (31.0-37.0); MCV 88.9 fL (80.0-100.0); Mean Platelet Volume 8.2; Platelet Count 211 k/uL (150-450); RBC 3.72 m/uL (4.30-5.90); RDW 15.7 % (11.5-15.5); WBC 12.1 k/uL (3.8-10.6)
[2020-07-12 05:01] LABS: African American GFR (CKD) >90 (>60 ml/min/1.73 sqM); Anion Gap 7 mmol/L; Blood Urea Nitrogen 28 mg/dL (9-20); Calcium 9.2 mg/dL (8.4-10.2); Carbon Dioxide 33 mmol/L (22-30); Chloride 99 mmol/L (98-107); Glucose 262 mg/dL (74-99); Non-African American GFR(CKD) >90 (>60 ml/min/1.73 sqM); Potassium 4.4 mmol/L (3.5-5.1); Sodium 139 mmol/L (137-145)
--- NOTE | 2020-07-12 05:04 | XR ---
EXAM: XR Chest, 1 View CLINICAL HISTORY: ITS.REASON XR Reason: Resp distress TECHNIQUE: Frontal view of the chest. COMPARISON: No relevant prior studies available. FINDINGS: Lungs: Diffuse airspace opacities, right greater the left, which may represent an infectious process. Pleural space: Unremarkable. Heart: Prominence of the cardiomediastinal silhouette. Mediastinum: See above. Bones/joints: Unremarkable. IMPRESSION: Diffuse airspace opacities, right greater the left, which may represent an infectious process.
[2020-07-12 05:20] LABS: Band Neutrophils % 10 %; Eosinophils # (M) 0.12 k/uL (0-0.7); Lymphocytes # (M) 0.48 k/uL (1.0-4.8); Monocytes # (M) 0.73 k/uL (0-1.0); Neutrophils % (M) 79 %; Nucleated Red Blood Cells 0 /100 WBC (0-0); Total Cells Counted 100
[2020-07-12 06:26] LABS: Glucose,Whole Blood 263 mg/dL (75-99)
[2020-07-12] MEDS: ATORVASTATIN 10 MG TAB PEG/G-TUBE SCH (06:37)
[2020-07-12] MEDS: OXYBUTYNIN XL 5 MG TAB.ER.24 PO SCH (06:37)
[2020-07-12] MEDS: CLOPIDOGREL 75 MG TAB PEG/G-TUBE SCH (06:37)
[2020-07-12] MEDS: ESCITALOPRAM 10 MG TAB PEG/G-TUBE SCH (06:37)
[2020-07-12] MEDS: PANTOPRAZOLE SODIUM 40 MG GRANULE PKT PEG/G-TUBE SCH (06:37)
[2020-07-12] MEDS: DOXAZOSIN 2 MG TAB PEG/G-TUBE SCH (06:37)
[2020-07-12] MEDS: LORazepam 0.5 MG TAB PEG/G-TUBE SCH ×3 (06:37→20:23)
[2020-07-12] MEDS: INSULIN ASPART (NovoLOG) 100 UNIT/ML VIAL SQ SCH ×4 (06:37→22:36)
[2020-07-12] MEDS: ALBUTEROL HFA INHALER INHALATION SCH ×4 (07:10→19:31)
[2020-07-12] MEDS: TIOTROPIUM 18 MCG/PUFF INHALER INHALATION SCH (07:10)
[2020-07-12] MEDS: HEPARIN SODIUM,PORCINE 5,000 UNIT/ML 1 ML VIAL SQ SCH (08:15)
[2020-07-12] MEDS: SIMETHICONE 40 MG/0.6 ML DROPS 2,000 MG/30 ML BOTTLE PEG/G-TUBE SCH ×3 (08:15→17:18)
[2020-07-12] MEDS: AMOXIC-POT CLAV 875-125MG 1 EACH TAB PO SCH ×2 (08:15→20:23)
[2020-07-12] MEDS: INSULIN DETEMIR (LEVEMIR) 100 UNIT/ML SYR SQ SCH (09:57)
[2020-07-12 11:14] LABS: Glucose,Whole Blood 215 mg/dL (75-99)
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
[2020-07-12 17:00] LABS: Glucose,Whole Blood 258 mg/dL (75-99)
[2020-07-12] MEDS: OLANZapine 2.5 MG TAB PEG/G-TUBE SCH (17:18)
[2020-07-12] MEDS: MELATONIN 5 MG TABLET PEG/G-TUBE SCH (20:23)
[2020-07-12] MEDS: LEVOTHYROXINE 100 MCG TAB PEG/G-TUBE SCH (20:23)
[2020-07-12 20:45] LABS: Glucose,Whole Blood 268 mg/dL (75-99)
[2020-07-12] MEDS ORDERED: FUROSEMIDE 10 MG/ML 2 ML VIAL IV ONE (21:00)
[2020-07-13] MEDS ORDERED: FUROSEMIDE 10 MG/ML 4 ML VIAL ONE (04:27)
[2020-07-13] MEDS ORDERED: FUROSEMIDE 10 MG/ML 4 ML VIAL IV STA (04:30)
[2020-07-13] MEDS: ACETAMINOPHEN TAB 325 MG TAB PEG/G-TUBE PRN (04:38)
[2020-07-13 04:56] LABS: ABG Base Excess 3.3 mmol/L; ABG HCO3 30 mmol/L (21-25); ABG PCO2 40 mmHg (35-45); ABG PH 7.48 (7.35-7.45); ABG PO2 67 mmHg (83-108); ABG TCO2 31 mmol/L (19-24); Allen Test Performed? Yes
[2020-07-13] MEDS: OXYBUTYNIN XL 5 MG TAB.ER.24 PO SCH (05:02)
[2020-07-13] MEDS: CLOPIDOGREL 75 MG TAB PEG/G-TUBE SCH (05:02)
[2020-07-13] MEDS: ATORVASTATIN 10 MG TAB PEG/G-TUBE SCH (05:02)
[2020-07-13] MEDS: FUROSEMIDE 40 MG TAB PEG/G-TUBE SCH (05:02)
[2020-07-13] MEDS: ESCITALOPRAM 10 MG TAB PEG/G-TUBE SCH (05:02)
[2020-07-13] MEDS: LORazepam 0.5 MG TAB PEG/G-TUBE SCH ×3 (05:02→21:15)
--- NOTE | 2020-07-13 05:10 | XR ---
EXAM: XR Chest, 1 View CLINICAL HISTORY: ITS.REASON XR Reason: Resp distress TECHNIQUE: Frontal view of the chest. COMPARISON: Chest x-ray dated 07/12/2020 FINDINGS: Lungs: Diffuse airspace opacities seen throughout both lungs with consolidation within the mid to upper right lung likely representing an infectious process. Pleural space: Unremarkable. Heart: Unremarkable. Mediastinum: Unremarkable. Bones/joints: Unremarkable. Vasculature: Calcifications of the aortic knob. IMPRESSION: Diffuse airspace opacities seen throughout both lungs with consolidation within the mid to upper right lung likely representing an infectious process. Findings appear worse as compared to the prior.
[2020-07-13 06:20] LABS: Glucose,Whole Blood 307 mg/dL (75-99)
[2020-07-13] MEDS: DOXAZOSIN 2 MG TAB PEG/G-TUBE SCH (06:52)
[2020-07-13] MEDS: PANTOPRAZOLE SODIUM 40 MG GRANULE PKT PEG/G-TUBE SCH (06:52)
[2020-07-13] MEDS: ALBUTEROL HFA INHALER INHALATION SCH ×4 (07:20→20:28)
[2020-07-13] MEDS: TIOTROPIUM 18 MCG/PUFF INHALER INHALATION SCH (07:21)
[2020-07-13] MEDS: INSULIN ASPART (NovoLOG) 100 UNIT/ML VIAL SQ SCH ×4 (07:22→21:15)
[2020-07-13] MEDS: SIMETHICONE 40 MG/0.6 ML DROPS 2,000 MG/30 ML BOTTLE PEG/G-TUBE SCH ×5 (07:49→21:45)
[2020-07-13] MEDS: HEPARIN SODIUM,PORCINE 5,000 UNIT/ML 1 ML VIAL SQ SCH ×3 (07:59→21:15)
[2020-07-13 11:48] LABS: Glucose,Whole Blood 179 mg/dL (75-99)
[2020-07-13] MEDS: AMOXIC-POT CLAV 875-125MG 1 EACH TAB PO SCH (12:09)
[2020-07-13] MEDS: PIPERACILLIN-TAZOBACTAM 3.375 GM in SODIUM CHLORIDE 0.9% 100 ML IVPB SCH (12:15)
[2020-07-13 16:34] LABS: Glucose,Whole Blood 224 mg/dL (75-99)
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
[2020-07-13] MEDS: INSULIN DETEMIR (LEVEMIR) 100 UNIT/ML SYR SQ SCH (17:50)
[2020-07-13] MEDS: OLANZapine 2.5 MG TAB PEG/G-TUBE SCH (17:51)
[2020-07-13 20:42] LABS: Glucose,Whole Blood 226 mg/dL (75-99)
[2020-07-13] MEDS: MELATONIN 5 MG TABLET PEG/G-TUBE SCH (21:15)
[2020-07-13] MEDS: LEVOTHYROXINE 100 MCG TAB PEG/G-TUBE SCH (21:15)
[2020-07-14] MEDS: PIPERACILLIN-TAZOBACTAM 3.375 GM in SODIUM CHLORIDE 0.9% 100 ML IVPB SCH ×3 (00:24→17:58)
[2020-07-14] MEDS: PANTOPRAZOLE SODIUM 40 MG GRANULE PKT PEG/G-TUBE SCH (04:49)
[2020-07-14] MEDS: FUROSEMIDE 40 MG TAB PEG/G-TUBE SCH (04:49)
[2020-07-14] MEDS: CLOPIDOGREL 75 MG TAB PEG/G-TUBE SCH (04:49)
[2020-07-14] MEDS: OXYBUTYNIN XL 5 MG TAB.ER.24 PO SCH (04:49)
[2020-07-14] MEDS: ATORVASTATIN 10 MG TAB PEG/G-TUBE SCH (04:49)
[2020-07-14] MEDS: LORazepam 0.5 MG TAB PEG/G-TUBE SCH ×3 (04:50→20:54)
[2020-07-14] MEDS: DOXAZOSIN 2 MG TAB PEG/G-TUBE SCH (04:50)
[2020-07-14] MEDS: ESCITALOPRAM 10 MG TAB PEG/G-TUBE SCH (04:50)
[2020-07-14 05:29] LABS: Glucose,Whole Blood 211 mg/dL (75-99)
[2020-07-14] MEDS: INSULIN DETEMIR (LEVEMIR) 100 UNIT/ML SYR SQ SCH (06:30)
[2020-07-14] MEDS: INSULIN ASPART (NovoLOG) 100 UNIT/ML VIAL SQ SCH ×4 (06:36→20:54)
[2020-07-14] MEDS: HEPARIN SODIUM,PORCINE 5,000 UNIT/ML 1 ML VIAL SQ SCH ×2 (08:48→20:54)
[2020-07-14] MEDS: SIMETHICONE 40 MG/0.6 ML DROPS 2,000 MG/30 ML BOTTLE PEG/G-TUBE SCH ×3 (08:49→19:33)
[2020-07-14] MEDS: ALBUTEROL HFA INHALER INHALATION SCH ×4 (09:18→19:58)
[2020-07-14] MEDS: TIOTROPIUM 18 MCG/PUFF INHALER INHALATION SCH (09:19)
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
[2020-07-14 12:11] LABS: Basophils % (A) 0 %; Eosinophils # (A) 0.5 k/uL (0-0.7); Eosinophils % (A) 6 %; HCT 30.8 % (39.0-53.0); HGB 9.4 gm/dL (13.0-17.5); Hypochromasia Marked; Lymphocytes # (A) 0.7 k/uL (1.0-4.8); Lymphocytes % (A) 8 %; MCH 27.5 pg (25.0-35.0); MCHC 30.5 g/dL (31.0-37.0); MCV 90.2 fL (80.0-100.0); Mean Platelet Volume 8.4; Monocytes # (A) 0.3 k/uL (0-1.0); Monocytes % (A) 4 %; Neutrophils % (A) 80 %; Platelet Count 252 k/uL (150-450); RBC 3.42 m/uL (4.30-5.90); RDW 15.6 % (11.5-15.5); WBC 8.7 k/uL (3.8-10.6)
[2020-07-14 12:13] LABS: Glucose,Whole Blood 215 mg/dL (75-99)
[2020-07-14 12:18] LABS: African American GFR (CKD) >90 (>60 ml/min/1.73 sqM); Anion Gap 6 mmol/L; Blood Urea Nitrogen 28 mg/dL (9-20); Calcium 9.1 mg/dL (8.4-10.2); Carbon Dioxide 37 mmol/L (22-30); Chloride 98 mmol/L (98-107); Glucose 239 mg/dL (74-99); Non-African American GFR(CKD) 81 (>60 ml/min/1.73 sqM); Potassium 4.3 mmol/L (3.5-5.1); Sodium 141 mmol/L (137-145)
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
[2020-07-14 16:54] LABS: Glucose,Whole Blood 253 mg/dL (75-99)
[2020-07-14] MEDS: OLANZapine 2.5 MG TAB PEG/G-TUBE SCH (17:59)
[2020-07-14 20:53] LABS: Glucose,Whole Blood 228 mg/dL (75-99)
[2020-07-14] MEDS: MELATONIN 5 MG TABLET PEG/G-TUBE SCH (20:54)
[2020-07-14] MEDS: LEVOTHYROXINE 100 MCG TAB PEG/G-TUBE SCH (20:54)
[2020-07-15] MEDS: PIPERACILLIN-TAZOBACTAM 3.375 GM in SODIUM CHLORIDE 0.9% 100 ML IVPB SCH ×4 (00:05→23:51)
[2020-07-15] MEDS: ESCITALOPRAM 10 MG TAB PEG/G-TUBE SCH (05:19)
[2020-07-15] MEDS: PANTOPRAZOLE SODIUM 40 MG GRANULE PKT PEG/G-TUBE SCH (05:19)
[2020-07-15] MEDS: CLOPIDOGREL 75 MG TAB PEG/G-TUBE SCH (05:19)
[2020-07-15] MEDS: LORazepam 0.5 MG TAB PEG/G-TUBE SCH ×3 (05:19→21:37)
[2020-07-15] MEDS: ATORVASTATIN 10 MG TAB PEG/G-TUBE SCH (05:19)
[2020-07-15] MEDS: DOXAZOSIN 2 MG TAB PEG/G-TUBE SCH (05:19)
[2020-07-15] MEDS: FUROSEMIDE 40 MG TAB PEG/G-TUBE SCH (05:19)
[2020-07-15 06:21] LABS: Glucose,Whole Blood 256 mg/dL (75-99)
[2020-07-15] MEDS: INSULIN ASPART (NovoLOG) 100 UNIT/ML VIAL SQ SCH ×4 (06:41→21:17)
[2020-07-15] MEDS: OXYBUTYNIN XL 5 MG TAB.ER.24 PO SCH (06:43)
[2020-07-15] MEDS: SIMETHICONE 40 MG/0.6 ML DROPS 2,000 MG/30 ML BOTTLE PEG/G-TUBE SCH ×5 (06:43→21:40)
[2020-07-15] MEDS: INSULIN DETEMIR (LEVEMIR) 100 UNIT/ML SYR SQ SCH (06:43)
[2020-07-15] MEDS: ALBUTEROL HFA INHALER INHALATION SCH ×4 (07:55→19:18)
[2020-07-15] MEDS: TIOTROPIUM 18 MCG/PUFF INHALER INHALATION SCH (07:55)
[2020-07-15] MEDS: HEPARIN SODIUM,PORCINE 5,000 UNIT/ML 1 ML VIAL SQ SCH ×2 (08:31→21:17)
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
[2020-07-15 12:24] LABS: Glucose,Whole Blood 282 mg/dL (75-99)
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
[2020-07-15 16:44] LABS: Glucose,Whole Blood 271 mg/dL (75-99)
[2020-07-15] MEDS: OLANZapine 2.5 MG TAB PEG/G-TUBE SCH (17:16)
[2020-07-15 21:10] LABS: Glucose,Whole Blood 242 mg/dL (75-99)
[2020-07-15] MEDS: ACETAMINOPHEN TAB 325 MG TAB PEG/G-TUBE PRN (21:17)
[2020-07-15] MEDS: MELATONIN 5 MG TABLET PEG/G-TUBE SCH (21:37)
[2020-07-15] MEDS: LEVOTHYROXINE 100 MCG TAB PEG/G-TUBE SCH (21:37)
[2020-07-16] MEDS: LORazepam 0.5 MG TAB PEG/G-TUBE SCH ×3 (05:27→21:20)
[2020-07-16] MEDS: DOXAZOSIN 2 MG TAB PEG/G-TUBE SCH (05:27)
[2020-07-16] MEDS: CLOPIDOGREL 75 MG TAB PEG/G-TUBE SCH (05:28)
[2020-07-16] MEDS: ATORVASTATIN 10 MG TAB PEG/G-TUBE SCH (05:28)
[2020-07-16] MEDS: FUROSEMIDE 40 MG TAB PEG/G-TUBE SCH (05:28)
[2020-07-16] MEDS: ESCITALOPRAM 10 MG TAB PEG/G-TUBE SCH (05:28)
[2020-07-16] MEDS: PANTOPRAZOLE SODIUM 40 MG GRANULE PKT PEG/G-TUBE SCH (05:28)
[2020-07-16] MEDS: OXYBUTYNIN XL 5 MG TAB.ER.24 PO SCH (05:29)
[2020-07-16] MEDS: INSULIN ASPART (NovoLOG) 100 UNIT/ML VIAL SQ SCH ×4 (06:50→21:21)
[2020-07-16 07:02] LABS: Glucose,Whole Blood 323 mg/dL (75-99)
[2020-07-16] MEDS: ALBUTEROL HFA INHALER INHALATION SCH ×4 (08:03→20:39)
[2020-07-16] MEDS: TIOTROPIUM 18 MCG/PUFF INHALER INHALATION SCH (08:04)
[2020-07-16] MEDS: PIPERACILLIN-TAZOBACTAM 3.375 GM in SODIUM CHLORIDE 0.9% 100 ML IVPB SCH ×3 (09:21→23:16)
[2020-07-16] MEDS: HEPARIN SODIUM,PORCINE 5,000 UNIT/ML 1 ML VIAL SQ SCH ×2 (09:22→21:20)
[2020-07-16] MEDS: INSULIN DETEMIR (LEVEMIR) 100 UNIT/ML SYR SQ SCH (09:22)
[2020-07-16] MEDS: SIMETHICONE 40 MG/0.6 ML DROPS 2,000 MG/30 ML BOTTLE PEG/G-TUBE SCH ×4 (09:23→21:21)
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
[2020-07-16 12:11] LABS: Glucose,Whole Blood 273 mg/dL (75-99)
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
[2020-07-16] MEDS: OLANZapine 2.5 MG TAB PEG/G-TUBE SCH (16:14)
[2020-07-16] MEDS: ACETAMINOPHEN TAB 325 MG TAB PEG/G-TUBE PRN (16:30)
[2020-07-16 16:54] LABS: Glucose,Whole Blood 228 mg/dL (75-99)
[2020-07-16] MEDS ORDERED: INSULIN DETEMIR (LEVEMIR) 100 UNIT/ML SYR SQ ONE (20:45)
[2020-07-16 21:15] LABS: Glucose,Whole Blood 179 mg/dL (75-99)
[2020-07-16] MEDS: LEVOTHYROXINE 100 MCG TAB PEG/G-TUBE SCH (21:20)
[2020-07-16] MEDS: MELATONIN 5 MG TABLET PEG/G-TUBE SCH (21:20)
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
[2020-07-17] MEDS: ATORVASTATIN 10 MG TAB PEG/G-TUBE SCH (05:05)
[2020-07-17] MEDS: CLOPIDOGREL 75 MG TAB PEG/G-TUBE SCH (05:05)
[2020-07-17] MEDS: FUROSEMIDE 40 MG TAB PEG/G-TUBE SCH (05:05)
[2020-07-17] MEDS: ESCITALOPRAM 10 MG TAB PEG/G-TUBE SCH (05:05)
[2020-07-17] MEDS: DOXAZOSIN 2 MG TAB PEG/G-TUBE SCH (05:05)
[2020-07-17] MEDS: LORazepam 0.5 MG TAB PEG/G-TUBE SCH ×3 (05:05→21:03)
[2020-07-17] MEDS: OXYBUTYNIN XL 5 MG TAB.ER.24 PO SCH (05:06)
[2020-07-17] MEDS: PANTOPRAZOLE SODIUM 40 MG GRANULE PKT PEG/G-TUBE SCH (05:06)
[2020-07-17] MEDS: ACETAMINOPHEN TAB 325 MG TAB PEG/G-TUBE PRN (05:26)
[2020-07-17] MEDS: INSULIN ASPART (NovoLOG) 100 UNIT/ML VIAL SQ SCH ×4 (06:23→21:03)
[2020-07-17 06:29] LABS: Glucose,Whole Blood 324 mg/dL (75-99)
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
[2020-07-17] MEDS: PIPERACILLIN-TAZOBACTAM 3.375 GM in SODIUM CHLORIDE 0.9% 100 ML IVPB SCH ×3 (08:55→23:38)
[2020-07-17] MEDS: HEPARIN SODIUM,PORCINE 5,000 UNIT/ML 1 ML VIAL SQ SCH ×2 (08:55→21:03)
[2020-07-17] MEDS: TIOTROPIUM 18 MCG/PUFF INHALER INHALATION SCH (09:01)
[2020-07-17] MEDS: ALBUTEROL HFA INHALER INHALATION SCH ×4 (09:01→20:25)
[2020-07-17] MEDS: INSULIN DETEMIR (LEVEMIR) 100 UNIT/ML SYR SQ SCH (11:15)
[2020-07-17] MEDS: SIMETHICONE 40 MG/0.6 ML DROPS 2,000 MG/30 ML BOTTLE PEG/G-TUBE SCH ×4 (11:16→21:41)
[2020-07-17 11:58] LABS: Anisocytosis Slight; Basophils # (A) 0.1 k/uL (0-0.2); Basophils % (A) 1 %; Eosinophils # (A) 0.3 k/uL (0-0.7); Eosinophils % (A) 4 %; HCT 34.8 % (39.0-53.0); HGB 10.6 gm/dL (13.0-17.5); Hypochromasia Marked; Lymphocytes # (A) 0.8 k/uL (1.0-4.8); Lymphocytes % (A) 9 %; MCH 28.1 pg (25.0-35.0); MCHC 30.3 g/dL (31.0-37.0); MCV 92.7 fL (80.0-100.0); Mean Platelet Volume 7.9; Monocytes # (A) 0.3 k/uL (0-1.0); Monocytes % (A) 4 %; Neutrophils # (A) 7.3 k/uL (1.3-7.7); Neutrophils % (A) 82 %; Platelet Count 325 k/uL (150-450); RBC 3.75 m/uL (4.30-5.90); RDW 17.6 % (11.5-15.5)
[2020-07-17 12:11] LABS: African American GFR (CKD) >90 (>60 ml/min/1.73 sqM); Anion Gap 5 mmol/L; Blood Urea Nitrogen 25 mg/dL (9-20); Calcium 9.1 mg/dL (8.4-10.2); Carbon Dioxide 35 mmol/L (22-30); Chloride 105 mmol/L (98-107); Glucose 330 mg/dL (74-99); Non-African American GFR(CKD) 82 (>60 ml/min/1.73 sqM); Potassium 3.8 mmol/L (3.5-5.1); Sodium 145 mmol/L (137-145)
[2020-07-17 12:18] LABS: Glucose,Whole Blood 320 mg/dL (75-99)
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
--- NOTE | 2020-07-17 16:48 | XR ---
EXAMINATION TYPE: XR chest 1V DATE OF EXAM: 07/17/2020 CLINICAL HISTORY: sob. TECHNIQUE: Portable frontal view of the chest. COMPARISON: 07/13/2020 chest radiograph FINDINGS: The cardiomediastinal silhouette is within normal limits for size. Diffuse bilateral airsp fani opacities with mildly improved aeration of the right upper lung versus 07/13/2020. No pleural eff usion, or pneumothorax seen. The osseous structures are intact. IMPRESSION: Redemonstrated diffuse airspace opacities bilaterally, with mildly improved aeration of the right upper lungs versus 07/13/2020.
[2020-07-17 16:59] LABS: Glucose,Whole Blood 289 mg/dL (75-99)
[2020-07-17] MEDS: OLANZapine 2.5 MG TAB PEG/G-TUBE SCH (17:54)
[2020-07-17 20:19] LABS: Glucose,Whole Blood 229 mg/dL (75-99)
[2020-07-17] MEDS: LEVOTHYROXINE 100 MCG TAB PEG/G-TUBE SCH (21:03)
[2020-07-17] MEDS: MELATONIN 5 MG TABLET PEG/G-TUBE SCH (21:03)
[2020-07-18] MEDS ORDERED: VANCOMYCIN 2,000 MG in SODIUM CHLORIDE 0.9% 500 ML 500 ML IVPB ONE (01:00)
[2020-07-18] MEDS: ESCITALOPRAM 10 MG TAB PEG/G-TUBE SCH (05:15)
[2020-07-18] MEDS: LORazepam 0.5 MG TAB PEG/G-TUBE SCH ×3 (05:15→21:37)
[2020-07-18] MEDS: FUROSEMIDE 40 MG TAB PEG/G-TUBE SCH (05:15)
[2020-07-18] MEDS: CLOPIDOGREL 75 MG TAB PEG/G-TUBE SCH (05:15)
[2020-07-18] MEDS: ATORVASTATIN 10 MG TAB PEG/G-TUBE SCH (05:15)
[2020-07-18] MEDS: OXYBUTYNIN XL 5 MG TAB.ER.24 PO SCH (05:16)
[2020-07-18] MEDS: DOXAZOSIN 2 MG TAB PEG/G-TUBE SCH (05:16)
[2020-07-18] MEDS: PANTOPRAZOLE SODIUM 40 MG GRANULE PKT PEG/G-TUBE SCH (05:16)
[2020-07-18] MEDS: ACETAMINOPHEN TAB 325 MG TAB PEG/G-TUBE PRN (05:25)
[2020-07-18 05:55] LABS: Glucose,Whole Blood 425 mg/dL (75-99)
[2020-07-18] MEDS ORDERED: VANCOMYCIN IV PER PHARMACY 1 EACH MISC MISCELLANE SCH (06:00)
[2020-07-18] MEDS: INSULIN ASPART (NovoLOG) 100 UNIT/ML VIAL SQ SCH ×4 (07:07→21:37)
[2020-07-18] MEDS: PIPERACILLIN-TAZOBACTAM 3.375 GM in SODIUM CHLORIDE 0.9% 100 ML IVPB SCH (10:31)
[2020-07-18] MEDS: INSULIN DETEMIR (LEVEMIR) 100 UNIT/ML SYR SQ SCH (10:32)
[2020-07-18] MEDS: HEPARIN SODIUM,PORCINE 5,000 UNIT/ML 1 ML VIAL SQ SCH ×2 (10:32→21:37)
[2020-07-18] MEDS: SIMETHICONE 40 MG/0.6 ML DROPS 2,000 MG/30 ML BOTTLE PEG/G-TUBE SCH ×4 (10:33→21:41)
[2020-07-18 11:50] LABS: Glucose,Whole Blood 357 mg/dL (75-99)
[2020-07-18] MEDS ORDERED: VANCOMYCIN IV PER PHARMACY 1 EACH MISC MISCELLANE PRN (12:40)
[2020-07-18] MEDS ORDERED: CEFEPIME 1 GM in SODIUM CHLORIDE 0.9% 50 ML IVPB ONE (12:45)
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
[2020-07-18] MEDS: ALBUTEROL HFA INHALER INHALATION SCH ×3 (12:58→22:15)
[2020-07-18] MEDS: TIOTROPIUM 18 MCG/PUFF INHALER INHALATION SCH (12:58)
[2020-07-18] MEDS ORDERED: INSULIN DETEMIR (LEVEMIR) 100 UNIT/ML SYR SQ ONE (13:00)
[2020-07-18] MEDS ORDERED: VANCOMYCIN 2,000 MG in SODIUM CHLORIDE 0.9% 500 ML 500 ML IVPB SCH (14:00)
[2020-07-18 16:41] LABS: Glucose,Whole Blood 303 mg/dL (75-99)
[2020-07-18] MEDS: VANCOMYCIN 1,750 MG in SODIUM CHLORIDE 0.9% 500 ML 500 ML IVPB SCH (16:55)
[2020-07-18] MEDS: OLANZapine 2.5 MG TAB PEG/G-TUBE SCH (16:56)
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
[2020-07-18 20:08] LABS: Glucose,Whole Blood 220 mg/dL (75-99)
[2020-07-18] MEDS: CEFEPIME 1 GM in SODIUM CHLORIDE 0.9% 50 ML IVPB SCH (21:36)
[2020-07-18] MEDS: MELATONIN 5 MG TABLET PEG/G-TUBE SCH (21:37)
[2020-07-18] MEDS: LEVOTHYROXINE 100 MCG TAB PEG/G-TUBE SCH (21:37)
[2020-07-18] MEDS ORDERED: IOPAMIDOL CONTRAST (ORAL USE) VIAL PO PRN (23:00)
[2020-07-19] MEDS: VANCOMYCIN 1,750 MG in SODIUM CHLORIDE 0.9% 500 ML 500 ML IVPB SCH ×2 (02:41→14:14)
[2020-07-19] MEDS: ATORVASTATIN 10 MG TAB PEG/G-TUBE SCH (05:31)
[2020-07-19] MEDS: FUROSEMIDE 40 MG TAB PEG/G-TUBE SCH (05:31)
[2020-07-19] MEDS: ESCITALOPRAM 10 MG TAB PEG/G-TUBE SCH (05:31)
[2020-07-19] MEDS: PANTOPRAZOLE SODIUM 40 MG GRANULE PKT PEG/G-TUBE SCH (05:31)
[2020-07-19] MEDS: CLOPIDOGREL 75 MG TAB PEG/G-TUBE SCH (05:31)
[2020-07-19] MEDS: LORazepam 0.5 MG TAB PEG/G-TUBE SCH ×3 (05:31→21:06)
[2020-07-19] MEDS: DOXAZOSIN 2 MG TAB PEG/G-TUBE SCH (05:31)
[2020-07-19] MEDS: OXYBUTYNIN XL 5 MG TAB.ER.24 PO SCH (05:32)
[2020-07-19 05:54] LABS: Glucose,Whole Blood 333 mg/dL (75-99)
--- NOTE | 2020-07-19 05:54 | CONS ---
CONSULTATION DATE OF SERVICE: 07/18/2020 REASON FOR CONSULTATION: PEG tube site cellulitis and possible pneumonia. HISTORY OF PRESENT ILLNESS: The patient is a 80-year-old male who is a [facility] has been admitted to the hospital about 10 days ago for evaluation of increasing shortness of breath. This patient initially diagnosed with COVID-19 on 06/15/2020. The patient has been treated at this facility for respiratory support and possibility of an aspiration pneumonia and has been Augmentin as well as Zosyn. The patient has been spiking fever on a daily basis since the patient has been here in the hospital with a temperature of 101 to 103 degrees Fahrenheit almost on a daily basis. The patient did have white count of 11.2 and the white count has been normal since then. Kidney function has been normal. He did have a procalcitonin of 0.20 on and not checked since then. The patient did have blood cultures drawn on admission, which has been negative. Last chest x-ray was done last night, which shows diffuse airspace opacities bilaterally with mild improvement in aeration of right upper lung versus previous x-ray. The patient also noticed to have some purulent drainage around his PEG tube site which has been cultured. The patient's antibiotic was switched over to cefepime and vancomycin. Infectious Disease was consulted for further management of antibiotic therapy. Most of the information has been obtained from review of the chart, talking to nursing staff as the patient was unable to provide any history. REVIEW OF SYSTEMS: Positive points have been mentioned in HPI. Full review could not be obtained because of his mental status. PAST MEDICAL HISTORY: Coronary artery disease, COPD, CVA, TIA, diabetes mellitus, hypertension, hyperlipidemia, pneumonia, seizure disorder, hypothyroidism. PAST SURGICAL HISTORY: Appendectomy, cholecystectomy, tonsillectomy, craniotomy for brain tumor removal and a PEG tube placement. SOCIAL HISTORY: No history of smoking, drinking or drug use. Currently a [facility] resident. FAMILY HISTORY: Mother history of colon cancer. ALLERGIES: Allergies to SULFA, LEVAQUIN and TRIMETHOPRIM. MEDICATIONS: Medications include the patient is currently on Tylenol, Ventolin, DuoNeb, Lipitor, Dulcolax, cefepime 1 g q.12. He is on Plavix, Cardura, Lexapro, Robitussin, Levemir, Synthroid, Ativan, Nitrostat, Zyprexa and vancomycin. PHYSICAL EXAMINATION: Blood pressure 146/79 with a pulse of 114, temperature 98.2. He is 96% on 2 L nasal cannula. General description is an elderly male lying in bed in no distress. No tachypnea or accessory muscle of respiration use. HEENT: Examination shows slight pallor. No scleral icterus. Oral mucous membrane is dry. Neck: Trachea central. No thyromegaly. LUNGS: Unlabored breathing, decreased breath sounds in the bases, no wheeze or crackle. HEART: S1, S2. Regular rate and rhythm. No added sounds. ABDOMEN: Soft. PEG tube site with minimal redness. No purulent drainage or any induration was noticed. No guarding or rigidity. EXTREMITIES: Some trace edema of feet. SKIN EXAMINATION: No rash or mass palpable. NEUROLOGICAL: The patient is awake, normal but orientation could not be determined. LABS: Hemoglobin is 10.6, white count 9.0. BUN of 25, creatinine 0.89. Chest report mentioned above. DIAGNOSTIC IMPRESSION: Patient with a fever on a daily basis in this patient with initial concern for aspiration pneumonia. Now the chest x-ray did show some more improvement; however, now noticed to have some purulent drainage from his PEG tube site with question of possible leakage of his tube feeds versus infection. The patient also have developed diarrhea and will need to rule out Clostridium difficile colitis. PLAN: 1. We will check a stool for C difficile. 2. We will obtain a CT of abdomen and pelvis to make sure no evidence of any abdominal wall abscess that may need to be drained. 3. We will keep the patient on cefepime and vancomycin while waiting for the condition to stabilize and culture to finalize. 4. We will follow on clinical condition and further adjust medication if needed. Thank you for this consultation. Will follow this patient along with you. MMODL / IJN: [id number] /
[2020-07-19] MEDS ORDERED: INSULIN DETEMIR (LEVEMIR) 100 UNIT/ML SYR SQ SCH (06:00)
[2020-07-19] MEDS: INSULIN ASPART (NovoLOG) 100 UNIT/ML VIAL SQ SCH ×4 (06:15→21:07)
[2020-07-19] MEDS: TIOTROPIUM 18 MCG/PUFF INHALER INHALATION SCH (08:15)
[2020-07-19] MEDS: ALBUTEROL HFA INHALER INHALATION SCH ×4 (08:15→20:07)
[2020-07-19] MEDS ORDERED: IOPAMIDOL-250 50ML BTL IV STA (09:32)
[2020-07-19] MEDS: IOPAMIDOL CONTRAST (ORAL USE) VIAL PO PRN ×2 (10:05→11:06)
[2020-07-19] MEDS: CEFEPIME 1 GM in SODIUM CHLORIDE 0.9% 50 ML IVPB SCH ×2 (10:05→21:06)
[2020-07-19] MEDS: HEPARIN SODIUM,PORCINE 5,000 UNIT/ML 1 ML VIAL SQ SCH ×2 (10:05→21:06)
[2020-07-19 11:08] LABS: Anisocytosis Slight; Basophils # (A) 0.1 k/uL (0-0.2); Basophils % (A) 1 %; Eosinophils # (A) 0.2 k/uL (0-0.7); Eosinophils % (A) 2 %; HCT 31.4 % (39.0-53.0); HGB 9.9 gm/dL (13.0-17.5); Hypochromasia Marked; Lymphocytes # (A) 0.7 k/uL (1.0-4.8); Lymphocytes % (A) 8 %; MCH 28.9 pg (25.0-35.0); MCHC 31.4 g/dL (31.0-37.0); MCV 92.1 fL (80.0-100.0); Mean Platelet Volume 8.1; Monocytes # (A) 0.3 k/uL (0-1.0); Monocytes % (A) 4 %; Neutrophils # (A) 6.9 k/uL (1.3-7.7); Neutrophils % (A) 83 %; Platelet Count 342 k/uL (150-450); RBC 3.41 m/uL (4.30-5.90); RDW 18.4 % (11.5-15.5); WBC 8.2 k/uL (3.8-10.6)
[2020-07-19 11:32] LABS: C Reactive Protein 21.7 mg/L (<10.0); Calcium 9.3 mg/dL (8.4-10.2); Potassium 3.8 mmol/L (3.5-5.1)
[2020-07-19 12:04] LABS: Glucose,Whole Blood 220 mg/dL (75-99)
--- NOTE | 2020-07-19 12:14 | CT ---
EXAMINATION TYPE: CT abdomen pelvis wo con DATE OF EXAM: 07/19/2020 HISTORY: PEG cellulitis/abscess. Infection and pain. Swelling. CT DLP: 1087.4 mGycm. Automated Exposure Control for Dose Reduction was Utilized. TECHNIQUE: CT scan of the abdomen and pelvis is performed with oral but without IV contrast. COMPARISON: Outside CT December 14, 2019 FINDINGS: Within the limitations of a non-contrast study, the following observations are made. LUNG BASES: Tiny right pleural effusion. And bibasilar atelectasis and/or infiltrate. Right coronary artery calcification and/or stent. Correlate clinically. Flame-shaped subareolar gynecomastia. LIVER/GB: Gallbladder not seen presumed surgically absent. PANCREAS: No significant abnormality is seen. SPLEEN: No significant abnormality is seen. ADRENALS: No significant abnormality is seen. KIDNEYS: Cortical thinning both kidneys. No hydronephrosis. Piña catheter decompression of bladder. BOWEL: Oral contrast reaches level of the transverse colon. No suspicious small or large bowel dilata tion. Some redundancy of the sigmoid colon. PEG tube satisfactory in position, subcutaneous portion s hows surrounding soft tissue which is nonspecific could be related to surrounding granulation tissue. GENITAL ORGANS: Subtle calcifications in normal size prostate. LYMPH NODES: No greater than 1cm abdominal or pelvic lymph nodes are appreciated. OSSEOUS STRUCTURES: Facet arthropathy lower lumbar spine. OTHER: Moderate to severe calcified plaque of the aorta extends into branch vessels. Fat-containing u mbilical hernia redemonstrated. IMPRESSION: No suspicious fat stranding or focal fluid collection to suggest abscess. Satisfactory po sitioning of PEG tube.
[2020-07-19] MEDS: SIMETHICONE 40 MG/0.6 ML DROPS 2,000 MG/30 ML BOTTLE PEG/G-TUBE SCH ×4 (13:15→20:57)
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
[2020-07-19 16:55] LABS: Glucose,Whole Blood 203 mg/dL (75-99)
[2020-07-19 16:58] LABS: Appearance,Urine Turbid (Clear); Bacteria,Urine Occasional /hpf; Bilirubin,Urine Negative (Negative); Blood,Urine Moderate (Negative); Budding Yeast,Urine Moderate /hpf; Color,Urine Yellow; Glucose,Urine (UA) Negative (Negative); Hyaline Casts,Urine 21 /lpf (0-2); Ketones,Urine Negative (Negative); Leukocyte Esterase,Urine Large (Negative); Mucus,Urine Many /hpf; Nitrite,Urine Negative (Negative); Protein,Urine 1+ (Negative); RBC,Urine 107 /hpf (0-5); Squamous Epithelial Cell,Urine 1 /hpf (0-4); Urobilinogen,Urine <2.0 mg/dL (<2.0); WBC,Urine >182 /hpf (0-5)
[2020-07-19] MEDS ORDERED: TAMSULOSIN 0.4 MG CAP.ER.24H PO STA (18:11)
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
[2020-07-19 20:59] LABS: Glucose,Whole Blood 249 mg/dL (75-99)
[2020-07-19] MEDS: LEVOTHYROXINE 100 MCG TAB PEG/G-TUBE SCH (21:06)
[2020-07-19] MEDS: MELATONIN 5 MG TABLET PEG/G-TUBE SCH (21:06)
[2020-07-19] MEDS: OLANZapine 2.5 MG TAB PEG/G-TUBE SCH (21:06)
[2020-07-19] MEDS: ACETAMINOPHEN TAB 325 MG TAB PEG/G-TUBE PRN (23:11)
--- NOTE | 2020-07-20 00:33 | PN ---
PROGRESS NOTE DATE OF SERVICE: 07/19/2020 REASON FOR FOLLOWUP: 1. Pneumonia. 2. PEG tube site cellulitis. INTERVAL HISTORY: Patient is currently afebrile. The patient remains to be lethargic, nonverbal and unable to provide any history. No vomiting or any diarrhea was reported by the nursing staff. Patient himself was unable to provide any history. PHYSICAL EXAMINATION: Blood pressure 129/56, pulse of 101, temperature 98.2. He is 96% on 2 L nasal cannula. General description: The patient is an elderly male lying in bed in no distress. RESPIRATORY SYSTEM: Unlabored breathing. Some coarse breath sounds in the bases bilaterally. No wheeze. Heart S1, S2. Regular rate and rhythm. ABDOMEN: Soft, no tenderness. LABS: Hemoglobin 9.1, white count 8.2, BUN of 24, creatinine 0.98. Urine is positive. DIAGNOSTIC IMPRESSION AND PLAN: Patient with a fever and elevated white count multifactorial in this patient with concern for possible PEG tube site cellulitis. CT of abdomen and pelvis was negative for any abscess. Abdominal cultures with Hailee albicans. We will add Diflucan for the pneumonia, covered with cefepime and Vanco to continue while waiting for condition to stabilize and continue supportive care. MMODL / IJN: [id number] /
[2020-07-20] MEDS: VANCOMYCIN 1,750 MG in SODIUM CHLORIDE 0.9% 500 ML 500 ML IVPB SCH ×2 (02:10→15:07)
[2020-07-20] MEDS: CLOPIDOGREL 75 MG TAB PEG/G-TUBE SCH (05:12)
[2020-07-20] MEDS: DOXAZOSIN 2 MG TAB PEG/G-TUBE SCH (05:12)
[2020-07-20] MEDS: FUROSEMIDE 40 MG TAB PEG/G-TUBE SCH (05:12)
[2020-07-20] MEDS: ESCITALOPRAM 10 MG TAB PEG/G-TUBE SCH (05:12)
[2020-07-20] MEDS: LORazepam 0.5 MG TAB PEG/G-TUBE SCH ×3 (05:12→20:25)
[2020-07-20] MEDS: PANTOPRAZOLE SODIUM 40 MG GRANULE PKT PEG/G-TUBE SCH (05:12)
[2020-07-20] MEDS: OXYBUTYNIN XL 5 MG TAB.ER.24 PO SCH (05:12)
[2020-07-20] MEDS: ATORVASTATIN 10 MG TAB PEG/G-TUBE SCH (05:12)
[2020-07-20 05:58] LABS: Glucose,Whole Blood 336 mg/dL (75-99)
[2020-07-20] MEDS: INSULIN ASPART (NovoLOG) 100 UNIT/ML VIAL SQ SCH ×4 (06:07→20:26)
[2020-07-20] MEDS: INSULIN DETEMIR (LEVEMIR) 100 UNIT/ML SYR SQ SCH (06:07)
[2020-07-20] MEDS: ALBUTEROL HFA INHALER INHALATION SCH ×4 (09:35→19:07)
[2020-07-20] MEDS: TIOTROPIUM 18 MCG/PUFF INHALER INHALATION SCH (09:35)
[2020-07-20 09:43] LABS: African American GFR (CKD) >90 (>60 ml/min/1.73 sqM); Anion Gap 5 mmol/L; Blood Urea Nitrogen 28 mg/dL (9-20); Calcium 9.2 mg/dL (8.4-10.2); Carbon Dioxide 32 mmol/L (22-30); Chloride 111 mmol/L (98-107); Glucose 328 mg/dL (74-99); Non-African American GFR(CKD) 86 (>60 ml/min/1.73 sqM); Potassium 4.2 mmol/L (3.5-5.1); Sodium 148 mmol/L (137-145)
[2020-07-20 09:56] LABS: Anisocytosis Slight; HCT 32.3 % (39.0-53.0); HGB 10.4 gm/dL (13.0-17.5); Hypochromasia Moderate; MCH 28.7 pg (25.0-35.0); MCHC 32.1 g/dL (31.0-37.0); MCV 89.2 fL (80.0-100.0); Mean Platelet Volume 8.9; Platelet Count 300 k/uL (150-450); RBC 3.62 m/uL (4.30-5.90); RDW 17.1 % (11.5-15.5); WBC 9.3 k/uL (3.8-10.6)
[2020-07-20] MEDS: HEPARIN SODIUM,PORCINE 5,000 UNIT/ML 1 ML VIAL SQ SCH ×2 (10:21→20:25)
[2020-07-20] MEDS: TAMSULOSIN 0.4 MG CAP.ER.24H PO SCH (10:21)
[2020-07-20] MEDS: SIMETHICONE 40 MG/0.6 ML DROPS 2,000 MG/30 ML BOTTLE PEG/G-TUBE SCH ×4 (10:22→20:27)
[2020-07-20] MEDS: CEFEPIME 1 GM in SODIUM CHLORIDE 0.9% 50 ML IVPB SCH ×2 (10:22→20:26)
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
[2020-07-20] MEDS: DEXTROSE 5%-0.45% NACL 1,000 ML IV SCH ×2 (11:51→23:06)
[2020-07-20 12:00] LABS: Band Neutrophils % 1 %; Eosinophils # (M) 0.19 k/uL (0-0.7); Lymphocytes # (M) 0.65 k/uL (1.0-4.8); Monocytes # (M) 0.47 k/uL (0-1.0); Myelocytes # (M) 0.09 k/uL (0); Myelocytes % 1 %; Neutrophils % (M) 86 %; Nucleated Red Blood Cells 0 /100 WBC (0-0); Total Cells Counted 200
[2020-07-20 12:14] LABS: Glucose,Whole Blood 324 mg/dL (75-99)
[2020-07-20] MEDS ORDERED: VANCOMYCIN TROUGH DUE 1 EACH MISC MISCELLANE ONE (13:00)
[2020-07-20] MEDS ORDERED: VANCOMYCIN IV PER PHARMACY 1 EACH MISC MISCELLANE PRN ×2 (14:10→14:21)
[2020-07-20 17:02] LABS: Glucose,Whole Blood 305 mg/dL (75-99)
[2020-07-20 19:53] LABS: Glucose,Whole Blood 271 mg/dL (75-99)
[2020-07-20] MEDS: OLANZapine 2.5 MG TAB PEG/G-TUBE SCH (20:24)
[2020-07-20] MEDS: MELATONIN 5 MG TABLET PEG/G-TUBE SCH (20:25)
[2020-07-20] MEDS: LEVOTHYROXINE 100 MCG TAB PEG/G-TUBE SCH (20:25)
[2020-07-21] MEDS: ESCITALOPRAM 10 MG TAB PEG/G-TUBE SCH (05:05)
[2020-07-21] MEDS: ATORVASTATIN 10 MG TAB PEG/G-TUBE SCH (05:06)
[2020-07-21] MEDS: CLOPIDOGREL 75 MG TAB PEG/G-TUBE SCH (05:06)
[2020-07-21] MEDS: OXYBUTYNIN XL 5 MG TAB.ER.24 PO SCH (05:06)
[2020-07-21] MEDS: LORazepam 0.5 MG TAB PEG/G-TUBE SCH ×3 (05:06→20:17)
[2020-07-21] MEDS: FUROSEMIDE 40 MG TAB PEG/G-TUBE SCH (05:06)
[2020-07-21] MEDS: PANTOPRAZOLE SODIUM 40 MG GRANULE PKT PEG/G-TUBE SCH (05:28)
[2020-07-21] MEDS: DOXAZOSIN 2 MG TAB PEG/G-TUBE SCH (05:28)
[2020-07-21 05:35] LABS: Glucose,Whole Blood 266 mg/dL (75-99)
[2020-07-21] MEDS: INSULIN DETEMIR (LEVEMIR) 100 UNIT/ML SYR SQ SCH (06:01)
[2020-07-21] MEDS: INSULIN ASPART (NovoLOG) 100 UNIT/ML VIAL SQ SCH ×3 (06:02→17:14)
--- NOTE | 2020-07-21 06:37 | PN ---
PROGRESS NOTE DATE OF SERVICE: 07/20/2020 REASON FOR FOLLOWUP: Pneumonia and PEG tube site cellulitis. INTERVAL HISTORY: The patient is currently afebrile. Patient is breathing comfortably. No respiratory distress, vomiting or diarrhea has been reported. Patient was not able to provide any history. PHYSICAL EXAMINATION: Blood pressure 111/48 with a pulse of 86, temperature of 98.2, he is 96% on 2 L nasal cannula. General description is an elderly male lying in bed in no distress. Respiratory system: Unlabored breathing, decreased breath sounds in the base with no wheeze. Heart S1, S2. Regular rate and rhythm. ABDOMEN: Soft, no tenderness. LABS: Hemoglobin is 10.4, white count 9.3 with a BUN of 20, creatinine 0.7. Vanco trough 9.3. Abdominal wall showing Hailee albicans. DIAGNOSTIC IMPRESSION: 1. Patient with abdominal PEG tube site cellulitis. Local culture Hailee. Cannot use Diflucan because of the other medication the patient is on. We will apply nystatin cream or powder on the site. 2. Possible pneumonia covered with cefepime. Discontinue vancomycin and continue supportive care. MMODL / IJN: [id number] /
[2020-07-21] MEDS: TIOTROPIUM 18 MCG/PUFF INHALER INHALATION SCH (07:17)
[2020-07-21] MEDS: ALBUTEROL HFA INHALER INHALATION SCH ×4 (07:17→20:56)
[2020-07-21 09:53] LABS: Anisocytosis Moderate; Basophils % (A) 1 %; Eosinophils # (A) 0.2 k/uL (0-0.7); Eosinophils % (A) 2 %; HGB 9.6 gm/dL (13.0-17.5); Hypochromasia Marked; Lymphocytes # (A) 0.8 k/uL (1.0-4.8); Lymphocytes % (A) 9 %; MCH 34.9 pg (25.0-35.0); Macrocytosis Slight; Mean Platelet Volume 8.1; Monocytes # (A) 0.3 k/uL (0-1.0); Monocytes % (A) 4 %; Neutrophils # (A) 7.2 k/uL (1.3-7.7); Neutrophils % (A) 84 %; Platelet Count 282 k/uL (150-450); RBC 2.76 m/uL (4.30-5.90); RDW 23.3 % (11.5-15.5); WBC 8.6 k/uL (3.8-10.6)
[2020-07-21 09:54] LABS: African American GFR (CKD) >90 (>60 ml/min/1.73 sqM); Anion Gap 4 mmol/L; Blood Urea Nitrogen 28 mg/dL (9-20); Calcium 8.9 mg/dL (8.4-10.2); Carbon Dioxide 31 mmol/L (22-30); Chloride 108 mmol/L (98-107); Glucose 312 mg/dL (74-99); MCV 94.3 fL (80.0-100.0); Non-African American GFR(CKD) 89 (>60 ml/min/1.73 sqM); Sodium 143 mmol/L (137-145)
[2020-07-21] MEDS: HEPARIN SODIUM,PORCINE 5,000 UNIT/ML 1 ML VIAL SQ SCH ×2 (10:39→20:17)
[2020-07-21] MEDS: TAMSULOSIN 0.4 MG CAP.ER.24H PO SCH (10:39)
[2020-07-21] MEDS: CEFEPIME 1 GM in SODIUM CHLORIDE 0.9% 50 ML IVPB SCH ×2 (10:39→20:17)
[2020-07-21] MEDS: SIMETHICONE 40 MG/0.6 ML DROPS 2,000 MG/30 ML BOTTLE PEG/G-TUBE SCH ×4 (10:40→20:19)
[2020-07-21] MEDS: DEXTROSE 5%-0.45% NACL 1,000 ML IV SCH (10:45)
[2020-07-21] MEDS: ACETAMINOPHEN TAB 325 MG TAB PEG/G-TUBE PRN (10:45)
[2020-07-21 12:07] LABS: Glucose,Whole Blood 257 mg/dL (75-99)
[2020-07-21] MEDS: NYSTATIN 100,000 UNIT/GM POWD 15 GM TOPICAL SCH ×2 (13:01→20:18)
[2020-07-21 16:57] LABS: Glucose,Whole Blood 161 mg/dL (75-99)
[2020-07-21] MEDS: OLANZapine 2.5 MG TAB PEG/G-TUBE SCH (17:14)
[2020-07-21] MEDS: MELATONIN 5 MG TABLET PEG/G-TUBE SCH (20:17)
[2020-07-21] MEDS: LEVOTHYROXINE 100 MCG TAB PEG/G-TUBE SCH (20:17)
--- NOTE | 2020-07-21 22:25 | PN ---
PROGRESS NOTE DATE OF SERVICE: 07/21/2020 REASON FOR FOLLOWUP: PEG tube site cellulitis and pneumonia. INTERVAL HISTORY: The patient is currently afebrile. He seems to be breathing comfortably on nasal cannula oxygen. He remains not able to provide any history. No vomiting or any diarrhea has been reported by the nursing staff. PHYSICAL EXAMINATION: Blood pressure 107/45, pulse of 85, temperature 97.9. He is 97% on 2 L nasal cannula. General description is an elderly male lying in bed in no distress. RESPIRATORY SYSTEM: Unlabored breathing with decreased breath sounds at the base. No wheeze. HEART: S1, S2. Regular rate and rhythm. ABDOMEN: Soft. No tenderness. LABS: Hemoglobin 9.6, white count 8.6, BUN of 28, creatinine 0.72. DIAGNOSTIC IMPRESSION AND PLAN: 1. Patient with PEG tube site cellulitis. No evidence of any deep infection. The patient is on cefazolin. Currently continues off the Diflucan. Continue with the nystatin powder on the back. 2. Pneumonia, covered with cefepime. Fever resolved and white count is normal. oral Avelox on discharge. Continue with supportive care. MMODL / IJN: [id number] /
[2020-07-22 00:02] LABS: Glucose,Whole Blood 177 mg/dL (75-99)
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
[2020-07-22] MEDS: DEXTROSE 5%-0.45% NACL 1,000 ML IV SCH ×2 (00:35→10:42)
[2020-07-22] MEDS: INSULIN ASPART (NovoLOG) 100 UNIT/ML VIAL SQ SCH ×4 (00:35→17:48)
[2020-07-22] MEDS: ATORVASTATIN 10 MG TAB PEG/G-TUBE SCH (05:01)
[2020-07-22] MEDS: OXYBUTYNIN XL 5 MG TAB.ER.24 PO SCH (05:02)
[2020-07-22] MEDS: ESCITALOPRAM 10 MG TAB PEG/G-TUBE SCH (05:02)
[2020-07-22] MEDS: PANTOPRAZOLE SODIUM 40 MG GRANULE PKT PEG/G-TUBE SCH (05:02)
[2020-07-22] MEDS: DOXAZOSIN 2 MG TAB PEG/G-TUBE SCH (05:02)
[2020-07-22] MEDS: LORazepam 0.5 MG TAB PEG/G-TUBE SCH ×3 (05:02→19:59)
[2020-07-22] MEDS: FUROSEMIDE 40 MG TAB PEG/G-TUBE SCH (05:02)
[2020-07-22] MEDS: ACETAMINOPHEN TAB 325 MG TAB PEG/G-TUBE PRN (05:10)
[2020-07-22 05:28] LABS: Glucose,Whole Blood 236 mg/dL (75-99)
[2020-07-22] MEDS: INSULIN DETEMIR (LEVEMIR) 100 UNIT/ML SYR SQ SCH (06:22)
[2020-07-22] MEDS: ALBUTEROL HFA INHALER INHALATION SCH ×4 (08:00→19:57)
[2020-07-22] MEDS: TIOTROPIUM 18 MCG/PUFF INHALER INHALATION SCH (08:05)
[2020-07-22 08:34] LABS: Anisocytosis Slight; Basophils # (A) 0.1 k/uL (0-0.2); Basophils % (A) 0 %; Eosinophils # (A) 0.2 k/uL (0-0.7); Eosinophils % (A) 2 %; HGB 8.9 gm/dL (13.0-17.5); Hypochromasia Marked; Lymphocytes # (A) 0.8 k/uL (1.0-4.8); Lymphocytes % (A) 8 %; MCH 27.5 pg (25.0-35.0); MCHC 30.6 g/dL (31.0-37.0); MCV 89.8 fL (80.0-100.0); Mean Platelet Volume 8.5; Monocytes # (A) 0.3 k/uL (0-1.0); Monocytes % (A) 3 %; Neutrophils # (A) 9.3 k/uL (1.3-7.7); Neutrophils % (A) 86 %; Platelet Count 306 k/uL (150-450); RBC 3.22 m/uL (4.30-5.90); RDW 17.1 % (11.5-15.5); WBC 10.8 k/uL (3.8-10.6)
[2020-07-22 08:43] LABS: African American GFR (CKD) >90 (>60 ml/min/1.73 sqM); Anion Gap 5 mmol/L; Blood Urea Nitrogen 26 mg/dL (9-20); Calcium 8.9 mg/dL (8.4-10.2); Carbon Dioxide 31 mmol/L (22-30); Chloride 104 mmol/L (98-107); Glucose 227 mg/dL (74-99); Non-African American GFR(CKD) 87 (>60 ml/min/1.73 sqM); Potassium 3.9 mmol/L (3.5-5.1); Sodium 140 mmol/L (137-145)
[2020-07-22] MEDS: TAMSULOSIN 0.4 MG CAP.ER.24H PO SCH (10:41)
[2020-07-22] MEDS: NYSTATIN 100,000 UNIT/GM POWD 15 GM TOPICAL SCH ×2 (10:41→20:12)
[2020-07-22] MEDS: HEPARIN SODIUM,PORCINE 5,000 UNIT/ML 1 ML VIAL SQ SCH ×2 (10:41→19:59)
[2020-07-22] MEDS: CEFEPIME 1 GM in SODIUM CHLORIDE 0.9% 50 ML IVPB SCH ×2 (10:41→21:14)
[2020-07-22] MEDS: SIMETHICONE 40 MG/0.6 ML DROPS 2,000 MG/30 ML BOTTLE PEG/G-TUBE SCH ×4 (10:42→20:11)
[2020-07-22 11:50] LABS: Glucose,Whole Blood 182 mg/dL (75-99)
[2020-07-22 17:11] LABS: Glucose,Whole Blood 177 mg/dL (75-99)
[2020-07-22] MEDS: OLANZapine 2.5 MG TAB PEG/G-TUBE SCH (17:48)
[2020-07-22] MEDS: LEVOTHYROXINE 100 MCG TAB PEG/G-TUBE SCH (19:59)
[2020-07-22] MEDS: MELATONIN 5 MG TABLET PEG/G-TUBE SCH (19:59)
--- NOTE | 2020-07-23 00:43 | PN ---
PROGRESS NOTE DATE OF SERVICE: 07/22/2020 REASON FOR FOLLOWUP: 1. Pneumonia. 2. #2 back tube site cellulitis. INTERVAL HISTORY: The patient is currently afebrile. The patient is currently breathing comfortably on nasal cannula oxygen. He has been quite any history no vomiting or diarrhea reported by nursing staff. PHYSICAL EXAMINATION: Blood pressure 104/66, pulse 84 temperature 98.3 90% 2 L nasal cannula. General description is an elderly male lying in bed in no distress respiratory system: Unlabored breathing, decreased breath sounds at bases. No wheeze. HEART: S1, S2. Regular rate and rhythm. ABDOMEN: Soft no tenderness. LABS: Hemoglobin 8.8, white count 10.9, BUN of 26, creatinine 0.76. Urine showing Hailee albicans as well. IMPRESSION/PLAN: 1. Patient with pneumonia for which the patient currently covered on cefepime. 2. Patient with cellulitis, cultures positive for Hailee in this patient did have medications currently use of Diflucan. Patient currently covered with nystatin cream around the sore exam. 3. The patient now with urine positive for Hailee as well. We will change his Piña catheter and monitor clinical course closely. MMODL / IJN: [id number] /
[2020-07-23 01:13] LABS: Glucose,Whole Blood 189 mg/dL (75-99)
[2020-07-23] MEDS: INSULIN ASPART (NovoLOG) 100 UNIT/ML VIAL SQ SCH ×4 (01:24→17:32)
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
[2020-07-23] MEDS: PANTOPRAZOLE SODIUM 40 MG GRANULE PKT PEG/G-TUBE SCH (04:33)
[2020-07-23] MEDS: ATORVASTATIN 10 MG TAB PEG/G-TUBE SCH (04:33)
[2020-07-23] MEDS: OXYBUTYNIN XL 5 MG TAB.ER.24 PO SCH (04:33)
[2020-07-23] MEDS: DOXAZOSIN 2 MG TAB PEG/G-TUBE SCH (04:33)
[2020-07-23] MEDS: ESCITALOPRAM 10 MG TAB PEG/G-TUBE SCH (04:33)
[2020-07-23] MEDS: FUROSEMIDE 40 MG TAB PEG/G-TUBE SCH (04:33)
[2020-07-23] MEDS: LORazepam 0.5 MG TAB PEG/G-TUBE SCH ×3 (04:35→21:58)
[2020-07-23 05:59] LABS: Glucose,Whole Blood 142 mg/dL (75-99)
[2020-07-23] MEDS: INSULIN DETEMIR (LEVEMIR) 100 UNIT/ML SYR SQ SCH (06:02)
[2020-07-23] MEDS: TIOTROPIUM 18 MCG/PUFF INHALER INHALATION SCH (07:45)
[2020-07-23] MEDS: ALBUTEROL HFA INHALER INHALATION SCH ×4 (07:45→19:58)
[2020-07-23] MEDS: HEPARIN SODIUM,PORCINE 5,000 UNIT/ML 1 ML VIAL SQ SCH ×2 (08:24→21:59)
[2020-07-23] MEDS: TAMSULOSIN 0.4 MG CAP.ER.24H PO SCH (08:47)
[2020-07-23] MEDS: SIMETHICONE 40 MG/0.6 ML DROPS 2,000 MG/30 ML BOTTLE PEG/G-TUBE SCH ×4 (08:48→21:58)
[2020-07-23] MEDS: NYSTATIN 100,000 UNIT/GM POWD 15 GM TOPICAL SCH ×2 (08:48→21:58)
[2020-07-23] MEDS: CEFEPIME 1 GM in SODIUM CHLORIDE 0.9% 50 ML IVPB SCH ×2 (09:37→21:58)
[2020-07-23 09:49] LABS: Anion Gap 4.8 mmol/L (4.00-12.00); BUN/Creat Ratio 35.71 Ratio (12.00-20.00); Calcium 8.8 mg/dL (8.7-10.3); Carbon Dioxide 32.2 mmol/L (21.6-31.8); Non-African American GFR(CKD) 89.8 (60.0-200.0); Potassium 4.5 mmol/L (3.5-5.5)
[2020-07-23 11:57] LABS: Glucose,Whole Blood 179 mg/dL (75-99)
[2020-07-23 17:28] LABS: Glucose,Whole Blood 172 mg/dL (75-99)
[2020-07-23] MEDS: OLANZapine 2.5 MG TAB PEG/G-TUBE SCH (18:25)
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
[2020-07-23] MEDS: MELATONIN 5 MG TABLET PEG/G-TUBE SCH (21:58)
[2020-07-23] MEDS: LEVOTHYROXINE 100 MCG TAB PEG/G-TUBE SCH (21:58)
[2020-07-24 00:20] LABS: Glucose,Whole Blood 152 mg/dL (75-99)
[2020-07-24] MEDS: INSULIN ASPART (NovoLOG) 100 UNIT/ML VIAL SQ SCH ×5 (00:30→23:54)
[2020-07-24 05:16] LABS: Glucose,Whole Blood 149 mg/dL (75-99)
[2020-07-24] MEDS: LORazepam 0.5 MG TAB PEG/G-TUBE SCH ×3 (05:32→21:36)
[2020-07-24] MEDS: ATORVASTATIN 10 MG TAB PEG/G-TUBE SCH (05:32)
[2020-07-24] MEDS: PANTOPRAZOLE SODIUM 40 MG GRANULE PKT PEG/G-TUBE SCH (05:33)
[2020-07-24] MEDS: FUROSEMIDE 40 MG TAB PEG/G-TUBE SCH (05:33)
[2020-07-24] MEDS: INSULIN DETEMIR (LEVEMIR) 100 UNIT/ML SYR SQ SCH (05:33)
[2020-07-24] MEDS: DOXAZOSIN 2 MG TAB PEG/G-TUBE SCH (05:33)
[2020-07-24] MEDS: ESCITALOPRAM 10 MG TAB PEG/G-TUBE SCH (05:33)
--- NOTE | 2020-07-24 05:44 | PN ---
PROGRESS NOTE DATE OF SERVICE: 07/23/2020 REASON FOR FOLLOWUP: 1. Pneumonia. 2. PEG tube site cellulitis. INTERVAL HISTORY: The patient is currently afebrile. The patient is breathing comfortably. The patient is hemodynamically stable. He has been lethargic unable to provide any history. No vomiting, no diarrhea or other changes reported by the nursing staff. PHYSICAL EXAMINATION: Blood pressure 122/67 with a pulse of 90, temperature 98.4. He is 95% on 2 L nasal cannula. General description is an elderly male lying in bed in no distress. RESPIRATORY SYSTEM: Unlabored breathing, decreased breath sounds in the bases. No wheeze. HEART: S1, S2. Regular rate and rhythm. ABDOMEN: Soft, no tenderness. LABS: No CBC was done today. His creatinine 0.7. DIAGNOSTIC IMPRESSION AND PLAN: 1. Patient with fever which is multifactorial concern for possible pneumonia. Overall improvement with cefepime and is almost through the course of antibiotic, they will be discontinued on discharge. 2. Patient with PEG tube site cellulitis. Local culture with Hailee. Continue with nystatin powder. No need for systemic antifungals. MMODL / IJN: [id number] /
[2020-07-24] MEDS: OXYBUTYNIN XL 5 MG TAB.ER.24 PO SCH (05:47)
[2020-07-24] MEDS: TIOTROPIUM 18 MCG/PUFF INHALER INHALATION SCH (07:58)
[2020-07-24] MEDS: ALBUTEROL HFA INHALER INHALATION SCH ×4 (07:58→20:11)
[2020-07-24] MEDS: HEPARIN SODIUM,PORCINE 5,000 UNIT/ML 1 ML VIAL SQ SCH ×2 (09:31→21:36)
[2020-07-24] MEDS: TAMSULOSIN 0.4 MG CAP.ER.24H PO SCH (09:31)
[2020-07-24] MEDS: NYSTATIN 100,000 UNIT/GM POWD 15 GM TOPICAL SCH ×2 (09:38→21:36)
[2020-07-24] MEDS: SIMETHICONE 40 MG/0.6 ML DROPS 2,000 MG/30 ML BOTTLE PEG/G-TUBE SCH ×4 (09:38→21:36)
[2020-07-24 09:46] LABS: African American GFR (CKD) 98.5 (60.0-200.0); Anion Gap 6.3 mmol/L (4.00-12.00); BUN/Creat Ratio 32.5 Ratio (12.00-20.00); Calcium 9.4 mg/dL (8.7-10.3); Carbon Dioxide 29.7 mmol/L (21.6-31.8); Potassium 4.6 mmol/L (3.5-5.5)
[2020-07-24] MEDS: CEFEPIME 1 GM in SODIUM CHLORIDE 0.9% 50 ML IVPB SCH ×2 (10:37→21:36)
[2020-07-24 11:59] LABS: Glucose,Whole Blood 184 mg/dL (75-99)
[2020-07-24 12:51] VITALS: BMI 23.8
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
[2020-07-24 17:58] LABS: Glucose,Whole Blood 155 mg/dL (75-99)
[2020-07-24] MEDS: OLANZapine 2.5 MG TAB PEG/G-TUBE SCH (18:05)
--- NOTE | 2020-07-24 18:45 | PN ---
PROGRESS NOTE DATE OF SERVICE: 07/24/2020 REASON FOR FOLLOWUP: 1. Pneumonia. 2. PEG site cellulitis. INTERVAL HISTORY: Patient is currently afebrile. The patient is breathing comfortably. No respiratory distress has been noticed. No vomiting. No diarrhea or any change reported by the nursing staff. PHYSICAL EXAMINATION: Blood pressure 132/69, pulse of 85, temperature 98.9, he is 96% on 2 L nasal cannula. General description is an elderly male lying in bed in no distress. Respiratory system: Unlabored breathing, decreased breath sounds in the base, with no wheeze. Heart S1, S2. Regular rate and rhythm. Abdomen is soft, no tenderness. LABS: BUN of 26, creatinine 0.8. DIAGNOSTIC IMPRESSION AND PLAN: 1. Patient with pneumonia adequately treated. Has had 2 weeks of antibiotic therapy and antibiotics can be stopped upon discharge. 2. PEG tube site cellulitis. Local care with nystatin powder daily for a week. MMODL / IJN: [id number] /
[2020-07-24] MEDS: LEVOTHYROXINE 100 MCG TAB PEG/G-TUBE SCH (21:36)
[2020-07-24] MEDS: MELATONIN 5 MG TABLET PEG/G-TUBE SCH (21:36)
[2020-07-24 23:56] LABS: Glucose,Whole Blood 129 mg/dL (75-99)
[2020-07-25] MEDS: INSULIN ASPART (NovoLOG) 100 UNIT/ML VIAL SQ SCH (05:56)
[2020-07-25] MEDS: INSULIN DETEMIR (LEVEMIR) 100 UNIT/ML SYR SQ SCH (05:56)
[2020-07-25] MEDS: LORazepam 0.5 MG TAB PEG/G-TUBE SCH (05:56)
[2020-07-25] MEDS: PANTOPRAZOLE SODIUM 40 MG GRANULE PKT PEG/G-TUBE SCH (05:56)
[2020-07-25] MEDS: DOXAZOSIN 2 MG TAB PEG/G-TUBE SCH (05:56)
[2020-07-25] MEDS: ATORVASTATIN 10 MG TAB PEG/G-TUBE SCH (05:56)
[2020-07-25] MEDS: FUROSEMIDE 40 MG TAB PEG/G-TUBE SCH (05:56)
[2020-07-25] MEDS: ESCITALOPRAM 10 MG TAB PEG/G-TUBE SCH (05:56)
[2020-07-25] MEDS: OXYBUTYNIN XL 5 MG TAB.ER.24 PO SCH (05:57)
[2020-07-25 06:01] LABS: Glucose,Whole Blood 143 mg/dL (75-99)
[2020-07-25] MEDS: TIOTROPIUM 18 MCG/PUFF INHALER INHALATION SCH (07:48)
[2020-07-25] MEDS: ALBUTEROL HFA INHALER INHALATION SCH ×2 (07:48→11:53)
[2020-07-25 08:26] VITALS: BP 119/61; PULSE 79; RESP 19; TEMP 98.5
[2020-07-25] MEDS: HEPARIN SODIUM,PORCINE 5,000 UNIT/ML 1 ML VIAL SQ SCH (09:14)
[2020-07-25] MEDS: TAMSULOSIN 0.4 MG CAP.ER.24H PO SCH (09:15)
[2020-07-25] MEDS: SIMETHICONE 40 MG/0.6 ML DROPS 2,000 MG/30 ML BOTTLE PEG/G-TUBE SCH (09:15)
[2020-07-25] MEDS: NYSTATIN 100,000 UNIT/GM POWD 15 GM TOPICAL SCH (09:16)
[2020-07-25] MEDS: CEFEPIME 1 GM in SODIUM CHLORIDE 0.9% 50 ML IVPB SCH (09:35)
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
== END 2020-07-25 12:40 | DRG 871 ==
LOC: EC 07:36 → 3SCARD 08:32 → 6NMEDSUR 07-22 12:31
PROVIDERS: ADMIT Internal Medicine; ATTEND Internal Medicine
PROC: 3E0G76Z Introduction of Nutritional Substance into Upper GI, Via Natural or Artificial Opening (ICD-10-PCS; principal; 2020-07-09)
PROC: 5A09457 Assistance with Respiratory Ventilation, 24-96 Consecutive Hours, Continuous Positive Airway Pressure (ICD-10-PCS; principal; 2020-07-09)
DX: A41.9 Sepsis, unspecified organism (principal); J69.0 Pneumonitis due to inhalation of food and vomit; J96.01 Acute respiratory failure with hypoxia; B37.49 Other urogenital candidiasis; E87.0 Hyperosmolality and hypernatremia; K94.22 Gastrostomy infection; L03.311 Cellulitis of abdominal wall; I69.354 Hemiplegia and hemiparesis following cerebral infarction affecting left non-dominant side; E03.9 Hypothyroidism, unspecified; D86.0 Sarcoidosis of lung; E11.9 Type 2 diabetes mellitus without complications; E78.5 Hyperlipidemia, unspecified; F32.9 Major depressive disorder, single episode, unspecified; F41.9 Anxiety disorder, unspecified; G40.909 Epilepsy, unspecified, not intractable, without status epilepticus; I11.0 Hypertensive heart disease with heart failure; I25.10 Atherosclerotic heart disease of native coronary artery without angina pectoris; I50.9 Heart failure, unspecified; J44.9 Chronic obstructive pulmonary disease, unspecified; K52.9 Noninfective gastroenteritis and colitis, unspecified; Z86.19 Personal history of other infectious and parasitic diseases; Z87.820 Personal history of traumatic brain injury; Z20.828 Contact with and (suspected) exposure to other viral communicable diseases; V89.2XXS Person injured in unspecified motor-vehicle accident, traffic, sequela; I69.391 Dysphagia following cerebral infarction; I69.328 Other speech and language deficits following cerebral infarction; R47.81 Slurred speech; Z66 Do not resuscitate; Z79.02 Long term (current) use of antithrombotics/antiplatelets; Z79.4 Long term (current) use of insulin; Z79.899 Other long term (current) drug therapy; Z80.0 Family history of malignant neoplasm of digestive organs; Z85.828 Personal history of other malignant neoplasm of skin; Z85.841 Personal history of malignant neoplasm of brain; Z86.14 Personal history of Methicillin resistant Staphylococcus aureus infection; Z87.01 Personal history of pneumonia (recurrent); Z75.1 Person awaiting admission to adequate facility elsewhere; R33.9 Retention of urine, unspecified; Z88.1 Allergy status to other antibiotic agents; Z88.2 Allergy status to sulfonamides; Z79.890 Hormone replacement therapy; Z90.49 Acquired absence of other specified parts of digestive tract; Z90.89 Acquired absence of other organs
CPT/HCPCS: 36600; 71045; 74176; 80048; 80202; 81001; 82805; 83605; 84145; 85025; 86140; 87040; 87070; 87075; 87086; 87205; 87324; 87635; 94640; 94660; 94760; 96365; 96366; 99285